=== PATIENT | female | born 1985 | race Caucasian/White ===

== ENCOUNTER 2020-08-25 06:17 | Emergency (ER) | payer OTHER, SELFPAY ==
[2020-08-25 06:24] VITALS: BP 117/69; PULSE 77; RESP 20; TEMP 36.4; O2SAT 100; BMI 21.6
--- NOTE | 2020-08-25 06:44 | ED.NAVMDI ---
HPI - Nausea/Vomiting/Diarrhea General Chief complaint: Nausea/Vomiting/Diarrhea Stated complaint: nausea/vomiting Time Seen by Provider: 08/25/20 06:44 Source: patient Mode of arrival: ambulatory Limitations: no limitations History of Present Illness HPI Narrative: patient with cyclic vomiting syndrome for last 3 months etiology not clear start throwing up without any significant abdominal pain nonstop this time patient been throwing up for last 3 days more so for last 24 hours elicited complaint: nausea and vomiting Pertinent past history: cyclical vomiting Onset (ago): day(s) (3) Description of vomiting: watery Associated nausea: Yes Associated abdominal pain: No Location of pain: none Radiation: diffuse Pain consistency: constant Severity: mild Related Data Allergies Allergy/AdvReac Type Severity Reaction Status Date / Time latex [Latex] Allergy Unknown HIVES Unverified 06/06/20 15:52 acetaminophen [Vicodin] AdvReac Unknown N/V Verified 02/03/19 00:00 hydrocodone [Vicodin] AdvReac Unknown N/V Verified 02/03/19 00:00 metoclopramide [Reglan] AdvReac Unknown hallucinati Verified 02/03/19 00:00 ons sumatriptan [From Imitrex] AdvReac Unknown VOMITING Unverified 06/06/20 15:52 Latex Allergy Unknown hives Uncoded 02/03/19 00:00 latex Allergy Unknown HIVES Uncoded 06/30/18 00:00 From Imitrex AdvReac Unknown VOMITING Uncoded 06/06/20 15:52 From Reglan AdvReac Unknown AGITATION Uncoded 06/06/20 15:52 Review of Systems Review of Systems: REVIEW OF SYSTEMS: Pertinent positives and negatives are stated above in the history. GEN: no fevers, chills, fatigue HEENT: no nasal congestion, sore throat, ear pain NEURO: no headache, dizziness, focal weakness PULM: no cough, shortness of breath CV: no chest pain, palpitations, LE edema ABD: no , diarrhea : no dysuria, urgency, frequency SKIN: no rash ROS otherwise negative x 10 Gastrointestinal: Gastrointestinal: Reports nausea PMFSH Past Medical History Medical History Asthma Surgical History S/P removal of right ovary Social History Social History Advance Directives: No Physical Exam Vital Signs: Vital Signs: Last Vital Signs Temp 98 F 08/25/20 07:33 Pulse 72 08/25/20 07:33 Resp 16 08/25/20 07:33 BP 104/64 08/25/20 07:33 Pulse Ox 100 08/25/20 07:33 Body Mass Index 21.6 Appearance: Alert. Oriented X3. No acute distress. Anxious Eyes: Pupils equal, round and reactive to light. ENT: Pharynx normal. Neck: Normal inspection. Neck supple. CVS: Normal heart rate and rhythm. Pulses normal. Respiratory: No respiratory distress. Breath sounds normal. Abdomen: Soft and nontender. bowel sounds are present no mass palpable Skin: Skin warm and dry. Normal skin color. Normal skin turgor. Extremities: No lower extremity edema. Good range of movement Neuro: Oriented X 3. No motor deficit. No sensory deficit. MDM - Nausea/Vomiting/Diarrhea MDM Narrative Medical decision making narrative: Patient feeling much better now labs are stable taking p.o. fluids. Likely cause of vomiting cyclic vomiting. Will give her Ativan Lab Data Result diagrams: 08/25/20 07:09 08/25/20 07:09 Labs: Lab Results 08/25/20 08/25/20 08/25/20 Range/Units 06:43 07:09 07:09 WBC 10.2 (4.8-10.8) X10*3/uL RBC 4.15 L (4.20-5.50) X10*6/uL Hgb 12.9 (12.0-16.0) g/dl Hct 38.3 (37-47) % MCV 92.3 (80-98) fL MCH 31.1 (27.0-33.0) pg MCHC 33.7 (31.0-35.0) g/dl RDW 12.7 (11.0-16.0) % Plt Count 199 (160-400) X10*3/uL MPV 11.1 (9.4-12.3) fL Immature Gran % (Auto) 0.2 (0.0-0.4) % Neut % (Auto) 82.7 H (45-73) % Lymph % (Auto) 11.4 L (20-40) % [place] % (Auto) 4.3 (2-11) % Eos % (Auto) 1.0 (0-4) % Baso % (Auto) 0.4 (0-2) % Lymph # (Auto) 1.2 (1.2-4.9) X10*3/uL [place] # (Auto) 0.4 (0.1-1.2) X10*3/uL Eos # (Auto) 0.1 (0.0-0.4) X10*3/uL Baso # (Auto) 0.0 (0.0-0.2) X10*3/uL Abs Immat Gran (auto) 0.02 (0.00-0.03) X10*3/uL Absolute Neuts (auto) 8.5 H (2.0-8.3) X10*3/uL Absolute Nucleated RBC 0.000 (0.0-0.012) X10*3/uL Nucleated RBC % (auto) 0.0 (0.0-0.2) /100WBC Sodium 138 (135-145) mmol/L Potassium 4.1 (3.3-5.1) mmol/l Chloride 106 (96-108) mmol/L Carbon Dioxide 22 (22-29) mmol/L Anion Gap 14 (12-20) BUN 16 (9-16) mg/dL Creatinine 0.76 (0.5-1.4) mg/dL Estim Creat Clear Calc 93.8 Estimated GFR > 60 Random Glucose 108 (60-115) mg/dL Calcium 8.7 (8.4-10.2) mg/dL Total Bilirubin 0.7 (0.0-1.0) mg/dL Direct Bilirubin 0.2 (0.0-0.5) mg/dL AST 13 (5-31) U/L ALT 9 (0-31) U/L Alkaline Phosphatase 56 (39-117) U/L Total Protein 7.1 (6.5-8.0) g/dL Albumin 4.2 (3.5-5.0) g/dL Lipase 13 (8-78) U/L Urine Color YELLOW Urine Appearance HAZY Urine pH 5.5 (5.0-8.0) Ur Specific [place] >= 1.030 H (1.005-1.025) Urine Protein NEG (NEG-TRACE) MG/DL Urine Glucose (UA) NEG (NEG) MG/DL Urine Ketones NEG (NEG) MG/DL Urine Blood NEG (NEG) Urine Nitrite NEG (NEG) Ur Leukocyte Esterase NEG (NEG) Urine Test NEGATIVE (NEGATIVE)
[2020-08-25 07:14] LABS: Basophils Percent Auto 0.4 % (0-2); Eosinophils Absolute Auto 0.1 X10*3/uL (0.0-0.4); Hematocrit 38.3 % (37-47); Hemoglobin 12.9 g/dl (12.0-16.0); Imm Gran Abs Auto 0.02 X10*3/uL (0.00-0.03); Imm Gran Pct Auto 0.2 % (0.0-0.4); Lymphocytes Absolute Auto 1.2 X10*3/uL (1.2-4.9); Lymphocytes Percent Auto 11.4 % (20-40); MANUAL DIFF FLAG NO; Mean Corpuscular HGB Conc 33.7 g/dl (31.0-35.0); Mean Corpuscular Hemoglobin 31.1 pg (27.0-33.0); Mean Corpuscular Volume 92.3 fL (80-98); Mean Platelet Volume 11.1 fL (9.4-12.3); Monocytes Absolute Auto 0.4 X10*3/uL (0.1-1.2); Monocytes Percent Auto 4.3 % (2-11); Neutrophils Absolute Auto 8.5 X10*3/uL (2.0-8.3); Neutrophils Percent Auto 82.7 % (45-73); Platelet Count 199 X10*3/uL (160-400); Red Blood Count 4.15 X10*6/uL (4.20-5.50); Red Cell Distribution Width 12.7 % (11.0-16.0); White Blood Count 10.2 X10*3/uL (4.8-10.8)
[2020-08-25] MEDS: diphenhydrAMINE HCL 50 MG/ML VIAL 25 MG IVPUSH (07:14)
[2020-08-25] MEDS: LORazepam 2 MG/ML VIAL 0.5 MG IVPUSH (07:14)
[2020-08-25] MEDS: 0.9 % Sodium Chloride 1,000 ML 999 ML IVCONT (07:14)
[2020-08-25 07:16] LABS: Glucose Urine UA NEG (NEG); Leukocyte Esterase Urine NEG (NEG); Nitrite Urine NEG (NEG); PH 5.5 (5.0-8.0); Specific Gravity - Urine >= 1.030 (1.005-1.025); Urine Blood NEG (NEG); Urine Ketones NEG (NEG); Urine Protein NEG (NEG-TRACE)
[2020-08-25 07:33] VITALS: BP 104/64; PULSE 72; RESP 16; TEMP 36.6; O2SAT 100
[2020-08-25 07:37] LABS: Appearance Urine HAZY; Color Urine YELLOW
[2020-08-25 07:38] LABS: UPreg QC Valid YES; Urine Pregnancy NEGATIVE (NEGATIVE)
[2020-08-25 07:45] LABS: Alanine Aminotransferase 9 U/L (0-31); Albumin Level 4.2 g/dL (3.5-5.0); Alkaline Phosphatase 56 U/L (39-117); Anion Gap 14 (12-20); Aspartate Amino Transferase 13 U/L (5-31); Bilirubin Direct 0.2 mg/dL (0.0-0.5); Bilirubin Total 0.7 mg/dL (0.0-1.0); Blood Urea Nitrogen 16 mg/dL (9-16); Calcium 8.7 mg/dL (8.4-10.2); Carbon Dioxide 22 mmol/L (22-29); Chloride 106 mmol/L (96-108); Creatinine Clr Calc Pharmacy 93.8; Estimated Glomerular Filt Rate > 60; Glucose Random 108 mg/dL (60-115); Lipase 13 U/L (8-78); Potassium 4.1 mmol/l (3.3-5.1); Sodium 138 mmol/L (135-145); Total Protein 7.1 g/dL (6.5-8.0)
== END 2020-08-25 09:24 | disposition home or self-care (01) ==
PROVIDERS: Emergency Provider Internal Medicine
DX: R11.2 Nausea with vomiting, unspecified (principal); Z79.899 Other long term (current) drug therapy
CPT/HCPCS: 36415; 80048; 80076; 81003; 81025; 83690; 85025; 96361; 96374; 96375; 99284; J1200; J2060

== ENCOUNTER 2020-11-25 21:25 | Emergency (ER) | payer OTHER, SELFPAY ==
--- NOTE | 2020-11-25 22:55 | ED.SKABFB ---
HPI - Skin/Abscess/Foreign Bdy General Stated complaint: FOREIGN BODY REMOVAL Time Seen by Provider: 11/25/20 22:39 Source: patient Mode of arrival: ambulatory Limitations: no limitations History of Present Illness HPI narrative: R nose ring in place, the portion you use to take out nose ring is in the skin aspect of her nares - unable to remove at home complaint: foreign body Onset (ago): hour(s) Tetanus up to date: yes Location: face (R nare) Severity: mild Quality: dull Relieving factors: none Exacerbating factors: none Context: none Associated symptoms: denies other symptoms Treatments prior to arrival: none Related Data Previous Rx's Medication Instructions Recorded lorazepam [Ativan] 0.5 mg PO BEDTIME PRN #20 tab 08/25/20 Allergies Allergy/AdvReac Type Severity Reaction Status Date / Time latex [Latex] Allergy Unknown HIVES Unverified 06/06/20 15:52 acetaminophen [Vicodin] AdvReac Unknown N/V Verified 02/03/19 00:00 hydrocodone [Vicodin] AdvReac Unknown N/V Verified 02/03/19 00:00 metoclopramide [Reglan] AdvReac Unknown hallucinati Verified 02/03/19 00:00 ons sumatriptan [From Imitrex] AdvReac Unknown VOMITING Unverified 06/06/20 15:52 Latex Allergy Unknown hives Uncoded 02/03/19 00:00 latex Allergy Unknown HIVES Uncoded 06/30/18 00:00 From Imitrex AdvReac Unknown VOMITING Uncoded 06/06/20 15:52 From Reglan AdvReac Unknown AGITATION Uncoded 06/06/20 15:52 Review of Systems Review of Systems: Constitutional : No Fever, No Chills, Cardiovascular : No Chest Pain, No SOB Respiratory : No Dyspnea Gastrointestinal : No abdominal pain Musculoskeletal : No Joint Swelling Skin : No rash, positive skinFB Neuro : No Weakness, No Numbness PMFSH Past Medical History Attestation statement: The following information was validated with the patient. Medical History Asthma Surgical History S/P removal of right ovary Social History Social History (Updated 03/08/21 @ 22:58 by Makayla Urbina DO) Smoking Status: Never smoker Physical Exam Vital Signs: Appearance: Alert. Oriented X3. No acute distress. Anxious Eyes: Pupils equal, round and reactive to light. ENT: Pharynx normal. R nose ring with clamp part of ring in the skin of her nares no signs of infection Neck: Normal inspection. Neck supple. CVS: Normal heart rate and rhythm. Respiratory: No respiratory distress. . Abdomen: Soft and nontender. Neuro: Oriented X 3. No motor deficit. No sensory deficit. Procedures Procedure Narrative Procedure Narrative: removed R sided nose ring with verbal consent from patient okay to remove and break ring - ring pulled apart with brian clamps and removed - no complications MDM - Skin/Abscess/Foreign Bdy MDM Narrative Medical decision making narrative: 35 yo female with ring in R nares - there is a clamp part that was moved into her skin now she cannot take it out or separate it, occurred at home today Discharge Plan Discharge Clinical Impression: Foreign body (FB) in soft tissue Patient Disposition: Home, Self-Care Instructions: Soft Tissue Foreign Body (ED), Puncture Wound (ED) Additional Instructions: return to ED for any worsening symptoms or concerns apply pressure if it bleeds, monitor for increased redness, yellow drainage, fevers Prescriptions: No Action lorazepam [Ativan] 0.5 mg tablet 0.5 mg PO BEDTIME PRN (Reason: anxiety. nausea vomiting) Qty: 20 RF: 0
[2020-11-25 22:57] VITALS: BP 113/60; PULSE 73; RESP 16; TEMP 37.1; O2SAT 97; BMI 21.6
== END 2020-11-25 23:23 | disposition home or self-care (01) ==
LOC: HO.ED 23:15
PROVIDERS: Emergency Provider Emergency Medicine
DX: M79.5 Residual foreign body in soft tissue (principal)
CPT/HCPCS: 99283; 99284

== ENCOUNTER 2021-11-18 07:27 | Outpatient (REF) | payer OTHER, SELFPAY ==
[2021-11-18 11:51] LABS: Hematocrit 38.3 % (37.0-47.0); Hemoglobin 12.6 g/dl (12.0-16.0); Mean Corpuscular HGB Conc 32.9 g/dl (31.0-35.0); Mean Corpuscular Hemoglobin 30.6 pg (27.0-33.0); Mean Platelet Volume 11.8 fL (9.4-12.3); Platelet Count 299 X10*3/uL (160-400); Red Blood Count 4.12 X10*6/uL (4.20-5.50); Red Cell Distribution Width 12.8 % (11.0-16.0)
[2021-11-18 11:55] LABS: Appearance Urine CLOUDY; Color Urine YELLOW; Glucose Urine UA NEG (NEG); Leukocyte Esterase Urine NEG (NEG); Nitrite Urine NEG (NEG); Specific Gravity - Urine >= 1.030 (1.005-1.025); Urine Blood NEG (NEG); Urine Ketones NEG (NEG); Urine Protein NEG (NEG-TRACE)
[2021-11-18 12:26] LABS: Amorphous Sediment Urine 4+ /LPF; RBC Urine 0 /HPF (0); Squamous Epithelial Cell Urine 2+ /LPF; WBC Urine 0 /HPF (0-4)
[2021-11-18 12:40] LABS: Alanine Aminotransferase 9 U/L (0-31); Alkaline Phosphatase 43 U/L (39-117); Anion Gap 10 (12-20); Aspartate Amino Transferase 13 U/L (5-31); Bilirubin Total 0.7 mg/dL (0.0-1.0); Blood Urea Nitrogen 14 mg/dL (9-16); Calcium 9.4 mg/dL (8.4-10.2); Carbon Dioxide 25 mmol/L (22-29); Chloride 107 mmol/L (96-108); Cholesterol 226 mg/dL; Estimated Glomerular Filt Rate > 60; Glucose Fasting 88 mg/dL (60-99); HDL Cholesterol 63 mg/dL; Iron 153 mcg/dL (30-160); LDL Cholesterol Calculated 145 mg/dl; Percent Iron Saturation 36 % (15-50); Potassium 4.1 mmol/L (3.3-5.1); Sodium 138 mmol/L (135-145); Total Iron Binding Capacity 426 mcg/dL (228-428); Total Protein 7.3 g/dL (6.5-8.0); Triglycerides 90 mg/dL; Unsaturated Iron Binding 273 ug/dL
== END 2021-11-18 07:28 | disposition home or self-care (01) ==
LOC: HO.HMGCLDS 07:27
PROVIDERS: Visit Provider Internal Medicine
DX: Z00.00 Encounter for general adult medical examination without abnormal findings (principal); J45.909 Unspecified asthma, uncomplicated
CPT/HCPCS: 36415; 80053; 80061; 81001; 83540; 85027

== ENCOUNTER 2022-06-04 03:48 | Observation (INO) | payer OTHER, MEDICAID, SELFPAY ==
--- NOTE | ~2022-06-04 | CT_ITS ---
EXAMINATION: CT ABDOMEN AND PELVIS WITH CONTRAST CLINICAL INFORMATION: Left lower quadrant pain with bloody stool COMPARISON: CT abdomen pelvis 03/15/2017 TECHNIQUE: Multidetector volumetric images were obtained from the superior aspect of the liver through the pubic symphysis following administration 85 mL of Omnipaque 350 intravenous contrast. Sagittal and coronal reformatted images were obtained on the technologist's workstation. Oral contrast: No This CT examination was performed using dose optimization techniques as appropriate, variously including the following: *Automated exposure control *Adjustment of mA and/or kV according to patient size (this includes techniques or standardized protocols for targeted exams where dose is matched to indication/reason for exam; i.e. extremities or head) *Use of iterative reconstruction technique DLP: 427 mGy-cm FINDINGS: LUNG BASES: The visualized lung bases are unremarkable. LIVER, GALLBLADDER, AND BILIARY TREE: The liver is enlarged measuring 20 cm in cephalocaudad dimension. Normal in shape and attenuation. No focal hepatic lesion or biliary ductal dilatation is present. The gallbladder is unremarkable with no evidence of radiopaque gallstones, gallbladder wall thickening, or obvious pericholecystic inflammatory changes. PANCREAS: Unremarkable. SPLEEN: Unremarkable. ADRENAL GLANDS: Unremarkable. KIDNEYS AND URETERS: The kidneys are normal in size, shape, and attenuation. No hydronephrosis, hydroureter, or calculi seen. No perinephric stranding. BLADDER: Unremarkable. GASTROINTESTINAL TRACT: The descending colon demonstrates abnormally thickened mucosa with increased enhancement and pericolonic inflammatory changes in the fat (for example see 3:39). Findings are suggestive of colitis, either inflammatory, infectious or ischemic. ABDOMINAL WALL: No significant hernia is appreciated. LYMPH NODES: No retroperitoneal lymphadenopathy. VASCULAR: The proximal right ovarian vein remains thrombosed as has been noted in the past. The aorta and iliofemoral vessels appear unremarkable. The celiac and SMA are widely patent. The AMANDA is patent. No evidence of macrovascular compromise to the mesenteric circulation. The portal venous system is normal. PELVIC VISCERA: Retroverted uterus is present. An abnormal adnexal mass is not seen no free intraperitoneal fluid is present. OSSEOUS STRUCTURES: Unremarkable. Spine and SI joints appear unremarkable. CT/CT abdomen pelvis w IV con IMPRESSION: Colitis involving descending colon with mucosal thickening increased enhancement and pericolonic inflammatory changes. Findings are suggestive of colitis, either inflammatory, infectious or ischemic. The vasculature appears normal. 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 Fleischner guidelines were followed.
[2022-06-04 03:55] VITALS: BP 110/67; PULSE 78; RESP 16; TEMP 36.6; O2SAT 96; BMI 20.9
[2022-06-04 04:21] LABS: Hematocrit 34.3 % (37.0-47.0); Hemoglobin 11.5 g/dl (12.0-16.0); Mean Corpuscular HGB Conc 33.5 g/dl (31.0-35.0); Mean Corpuscular Hemoglobin 30.3 pg (27.0-33.0); Mean Corpuscular Volume 90.3 fL (80.0-98.0); Mean Platelet Volume 11.4 fL (9.4-12.3); Platelet Count 230 X10*3/uL (160-400); Red Cell Distribution Width 12.7 % (11.0-16.0); White Blood Count 14.5 X10*3/uL (4.8-10.8)
[2022-06-04 04:38] LABS: Alanine Aminotransferase 15 U/L (0-31); Albumin Level 3.4 g/dL (3.5-5.0); Alkaline Phosphatase 61 U/L (39-117); Anion Gap 13 (12-20); Aspartate Amino Transferase 13 U/L (5-31); Bilirubin Direct < 0.2 mg/dL (0.0-0.5); Bilirubin Total 0.2 mg/dL (0.0-1.0); Blood Urea Nitrogen 13 mg/dL (9-16); Calcium 8.7 mg/dL (8.4-10.2); Carbon Dioxide 22 mmol/L (22-29); Chloride 109 mmol/L (96-108); Creatinine Clr Calc Pharmacy 101.9; Estimated Glomerular Filt Rate > 60; Glucose Random 116 mg/dL (60-115); Lipase 19 U/L (8-78); Potassium 3.9 mmol/L (3.3-5.1); Sodium 140 mmol/L (135-145); Total Protein 6.3 g/dL (6.5-8.0)
[2022-06-04 05:36] LABS: Appearance Urine Cloudy; Color Urine Yellow; Glucose Urine UA Negative (Negative); Leukocyte Esterase Urine Trace (Negative); Nitrite Urine Negative (Negative); PH 5.5 (5.0-9.0); Specific Gravity - Urine 1.025 (1.005-1.025); UMIC TRIGGER UACC YES; UPreg QC Valid YES; Urine Blood Negative (Negative); Urine Ketones Negative (Negative); Urine Pregnancy NEGATIVE (NEGATIVE); Urine Protein Negative (Neg-Trace)
[2022-06-04 05:41] LABS: Bacteria Urine 3+ (None Seen); Hyaline Casts Urine 0-2 /LPF (0-2); Squamous Epithelial Cell Urine >20 /HPF (0-2); UACC Culture Trigger YES
--- NOTE | 2022-06-04 06:36 | ED.ABDPAIN ---
HPI - Abdominal Pain General Chief Complaint: Abdominal Pain Stated Complaint: abd pain, vomiting Time Seen by Provider: 06/04/22 06:36 Source: patient Mode of arrival: ambulatory Limitations: no limitations History of Present Illness HPI narrative: 37 yo female with hx of asthma, no recent abx use, no anti coagulant use - ate ground beef at home yesterday then around midnight developed severe L sided abdominal pain with watery bloody mucous stool and has a hemorrhoid. This has never happened before. She had a colonoscopy around age 20 that was normal that was done for persistent diarrhea. MD elicited complaint: abdominal pain Pertinent past history: none Onset (ago): hour(s) (7) Pain Consistency: constant Location: LLQ Severity: severe Quality: cramping and stabbing Radiation: none Migration to: no migration Exacerbating factors: movement Relieving factors: nothing Context: possible food poisoning Associated symptoms: nausea, diarrhea, chills and hematochezia Related Data Home Medications Medication Instructions Recorded Confirmed norelgestromin 150 mcg-e.estradiol 1 patch topical QWEEK 06/04/22 06/04/22 35 mcg/24 hr weekly transderm patch (Xulane) Previous Rx's Medication Instructions Recorded fluticasone propionate 230 2 puff inhalation Q12H #36 grams 06/12/21 mcg-salmeterol 21 mcg/actuation HFA inhaler (Advair HFA) albuterol sulfate 2.5 mg/3 mL 2.5 mg (3 mL) inhalation Q6H #90 mL 05/29/22 (0.083 %) solution for nebulization albuterol sulfate 90 mcg/actuation 2 puff inhalation Q6H PRN 06/01/22 aerosol inhaler (ProAir HFA) shortness of breath or wheezing #8.5 grams Allergies Allergy/AdvReac Type Severity Reaction Status Date / Time latex [Latex] Allergy Unknown HIVES Verified 10/20/21 12:28 acetaminophen [Vicodin] AdvReac Unknown vomiting Verified 10/20/21 12:28 hydrocodone [Vicodin] AdvReac Unknown Vomiting Verified 10/20/21 12:28 metoclopramide [Reglan] AdvReac Unknown hallucinati Verified 10/20/21 12:28 ons sumatriptan [From Imitrex] AdvReac Unknown VOMITING Verified 10/20/21 12:28 Review of Systems Review of Systems Constitutional : No Weight loss, No Fever, No Chills ENT/Mouth : No sore throat, No Rhinorrhea Eyes: No Swelling, No Redness Cardiovascular : No Chest Pain, No SOB, NoEdema Respiratory : No Cough, No Sputum, No Wheezing Gastrointestinal : Positive Nausea, no Vomiting, positive Diarrhea, positive abdominal Pain, pos Hematochezia, No Melena Genitourinary : No Dysuria, No Urinary Frequency, No Hematuria, No Urgency Musculoskeletal : No joint pain, No Myalgias, No Joint Swelling Skin : No Skin Lesions, No rash Neuro : No Weakness, No Numbness, No Dizziness, No Headache Psych : No Anxiety/Panic, No Depression Heme/Lymph: No Bruising, No Lymphadenopathy Endocrine : No Polyuria, No Polydipsia All other systems reviewed and are negative. [facility] Past Medical History Medical History Asthma Kidney stones Normal Pap smear Seasonal allergic rhinitis Surgical History S/P removal of right ovary Family History Family History Father Hypertension Brother Substance use disorder Mother No problems noted. Social History Social History Household Members Other:: single, 2 children, works for [employer] Housing: House Patient Tobacco Use Status: Never used Tobacco e-Cigarette/Vaping Use: Currently Using Use of substances other than those prescribed or required for medical reasons: No Advance Directives: No Advance Directives Information Provided: Yes service: No Current occupational status: employed Physical Exam ED Vital Signs: Vital Signs - 24 hr 06/04/22 03:55 Temperature 97.9 F Pulse Rate 78 Respiratory Rate 16 Blood Pressure 110/67 Pulse Oximetry 96 Oxygen Delivery Method Room Air BMI result Body Mass Index 20.9 Appearance: Alert. Oriented X3. No acute distress. Eyes: Pupils equal, round and reactive to light. ENT: Pharynx normal. Neck: Normal inspection. Neck supple. CVS: Normal heart rate and rhythm. Pulses normal. Respiratory: No respiratory distress. Breath sounds normal. Abdomen: Soft and moderate LLQ pain no rebound Rectal: large non thrombosed non bleeding ext hemorrhoid, digit is slight pink on exam stool Skin: Skin warm and dry. Normal skin color. Normal skin turgor. Extremities: No lower extremity edema. No calf ttp Neuro: Oriented X 3. No motor deficit. No sensory deficit. Course Course Course Narrative: repeat pain medications given ground beef ingestion I am holding off on abx for possible E Coli and concern for HUS she is healthy this should be self limiting - may need admission for pain control lactic acid is ordered MDM - Abdominal Pain MDM Narrative Medical decision making narrative: 37 yo female with hx of asthma, no abx use, no blood thinners here with c/o LLQ pain, nausea, bloody diarrhea did eat ground beef yesterday at home. At this time will need labs, IVF, IV morphine for pain, CT scan for colitis - dispo per results and findings. Lab Data Result diagrams: 06/04/22 04:13 06/04/22 04:13 Labs: Lab Results 06/04/22 06/04/22 06/04/22 Range/Units 04:13 04:13 07:10 WBC 14.5 H (4.8-10.8) X10*3/uL RBC 3.80 L (4.20-5.50) X10*6/uL Hgb 11.5 L (12.0-16.0) g/dl Hct 34.3 L (37.0-47.0) % MCV 90.3 (80.0-98.0) fL MCH 30.3 (27.0-33.0) pg MCHC 33.5 (31.0-35.0) g/dl RDW 12.7 (11.0-16.0) % Plt Count 230 (160-400) X10*3/uL MPV 11.4 (9.4-12.3) fL Absolute Nucleated RBC 0.000 (0.0-0.012) X10*3/uL Nucleated RBC % (auto) 0.0 (0.0-0.2) /100WBC Sodium 140 (135-145) mmol/L Potassium 3.9 (3.3-5.1) mmol/L Chloride 109 H (96-108) mmol/L Carbon Dioxide 22 (22-29) mmol/L Anion Gap 13 (12-20) BUN 13 (9-16) mg/dL Creatinine 0.71 (0.5-1.4) mg/dL Estim Creat Clear Calc 101.9 Estimated GFR > 60 Random Glucose 116 H (60-115) mg/dL Lactic Acid (0.5-2.0) mmol/L Calcium 8.7 D (8.4-10.2) mg/dL Total Bilirubin 0.2 (0.0-1.0) mg/dL Direct Bilirubin < 0.2 (0.0-0.5) mg/dL AST 13 (5-31) U/L ALT 15 (0-31) U/L Alkaline Phosphatase 61 D (39-117) U/L C-Reactive Protein 0.44 (< or = 0.50) mg/dL Total Protein 6.3 L (6.5-8.0) g/dL Albumin 3.4 L (3.5-5.0) g/dL Lipase 19 (8-78) U/L Stool Occult Blood POSITIVE (NEGATIVE) COVID-19 (TAMIKO) (Negative) COVID-19 Clin Com 06/04/22 06/04/22 Range/Units 07:11 09:24 WBC (4.8-10.8) X10*3/uL RBC (4.20-5.50) X10*6/uL Hgb (12.0-16.0) g/dl Hct (37.0-47.0) % MCV (80.0-98.0) fL MCH (27.0-33.0) pg MCHC (31.0-35.0) g/dl RDW (11.0-16.0) % Plt Count (160-400) X10*3/uL MPV (9.4-12.3) fL Absolute Nucleated RBC (0.0-0.012) X10*3/uL Nucleated RBC % (auto) (0.0-0.2) /100WBC Sodium (135-145) mmol/L Potassium (3.3-5.1) mmol/L Chloride (96-108) mmol/L Carbon Dioxide (22-29) mmol/L Anion Gap (12-20) BUN (9-16) mg/dL Creatinine (0.5-1.4) mg/dL Estim Creat Clear Calc Estimated GFR Random Glucose (60-115) mg/dL Lactic Acid 1.0 (0.5-2.0) mmol/L Calcium (8.4-10.2) mg/dL Total Bilirubin (0.0-1.0) mg/dL Direct Bilirubin (0.0-0.5) mg/dL AST (5-31) U/L ALT (0-31) U/L Alkaline Phosphatase (39-117) U/L C-Reactive Protein (< or = 0.50) mg/dL Total Protein (6.5-8.0) g/dL Albumin (3.5-5.0) g/dL Lipase (8-78) U/L Stool Occult Blood (NEGATIVE) COVID-19 (TAMIKO) Negative (Negative) COVID-19 Clin Com See Note Discharge Plan Discharge Clinical Impression: Colitis, Abdominal pain, Bright red rectal bleeding Patient Disposition: Admitted As Inpatient
[2022-06-04] MEDS: ondansetron HCL 4 MG/2 ML VIAL IVPUSH ×3 (07:11→18:35)
[2022-06-04] MEDS: Lactated Ringers 1,000 ML 999 ML IV (07:12)
[2022-06-04] MEDS: Morphine Sulfate 4 MG/ML CARTRIDGE IVPUSH (07:12)
[2022-06-04 07:29] LABS: OBS Int Ctl Valid YES; OBS1 POSITIVE (NEGATIVE)
[2022-06-04 07:40] LABS: COVID-19 Test Negative (Negative); IDNOW Serial# 16C4AD1C
[2022-06-04] MEDS: iohexoL 350 MG/ML 100 ML INFUS..BTL 85 ML IV (07:55)
[2022-06-04] MEDS: HYDROmorphone HCl 0.5 MG/0.5 ML SYRINGE IVPUSH ×2 (09:07→13:17)
[2022-06-04] MEDS: Lactated Ringers 1,000 ML 100 ML IVCONT ×2 (10:13→19:28)
--- NOTE | 2022-06-04 10:15 | P.HPHOSP_ITS ---
History of Present Illness Date of Service: 06/04/22 Chief Complaint: brbpr, llq pain 37F with pmh moderate persistent asthma presented with one day history of BRBPR. patient states that about 1 week ptp she went out for dinner and had 2-3 days severe watery diarrhea, her son, who also had the dinner had similar symptoms. she then felt better for about 2-3 days, until night of presentation when she woke up with severe llq 10/10 crampy non radiating abdominal pain associated with bloody diarrhea. patient denies fevers, previous hisotyr of similar symptoms, no family history of IBD. 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 Review of Systems Review of Systems: Constitutional: Denies fever, denies Chills Eyes: denies blurry vision ENT: denies sore throat CVS: denies chest pain Respiratory: Denies dyspnea GI: abdominal pain : denies dysuria MSK: denies neck pain Skin: denies rash Neuro: denies specific motor weakness Psych: denies suicidal ideation Endocrine: denies heat/cold intolerance Hematologic: denies easy bleeding Allergy: denies hives [facility] Medical History Asthma Kidney stones Normal Pap smear Seasonal allergic rhinitis Family History Father Hypertension Brother Substance use disorder Mother No problems noted. Surgical History S/P removal of right ovary Social History Household Members Other:: single, 2 children, works for [employer] Housing: House Patient Tobacco Use Status: Never used Tobacco e-Cigarette/Vaping Use: Currently Using Advance Directives: No Advance Directives Information Provided: Yes Current occupational status: employed Meds Allergies Allergy/AdvReac Type Severity Reaction Status Date / Time latex [Latex] Allergy Unknown HIVES Verified 10/20/21 12:28 acetaminophen [Vicodin] AdvReac Unknown vomiting Verified 10/20/21 12:28 hydrocodone [Vicodin] AdvReac Unknown Vomiting Verified 10/20/21 12:28 metoclopramide [Reglan] AdvReac Unknown hallucinati Verified 10/20/21 12:28 ons sumatriptan [From Imitrex] AdvReac Unknown VOMITING Verified 10/20/21 12:28 Active Medications: Current Medications Albuterol Sulfate (Albuterol Sulfate 90 Mcg 8 Gm Inhaler) 1 puff INHALE RQ4H PRN PRN Reason: sob Fluticasone/Vilanterol (Fluticasone/Vilanterol 200/25 Blst.W.Dev) 1 puff INHALE RDAILY LEROY Hydromorphone HCl (Hydromorphone Hcl 0.5 Mg/0.5 Ml Syringe) 0.5 mg IVPUSH Q4H PRN; Protocol PRN Reason: moderate pain Lactated Ringer's (Lr) 1,000 mls @ 100 mls/hr IVCONT .Q10H LEROY Last Admin: 06/04/22 10:13 Dose: 100 mls/hr Pharmacy Consult (Consult Rx Perform Med Rec) 1 each MISCELLANE ONCE PRN PRN Reason: Consult order Home Medications Medication Instructions Recorded Confirmed Last Taken Type etonogestrel 0.12 mg-ethinyl vag ring vaginal DIRECTED 06/12/21 10/20/21 Unknown History estradiol 0.015 mg/24 hr vaginal ring Physical Exam Vital Signs and Narrative: Vital Signs: Last Vital Signs Temp 97.9 F 06/04/22 03:55 Pulse 78 06/04/22 03:55 Resp 16 06/04/22 03:55 BP 110/67 06/04/22 03:55 Pulse Ox 96 06/04/22 03:55 O2 Del Method 06/04/22 03:55 BMI result Body Mass Index 20.9 General: no acute distress HEENT: atraumatic Neck: normal to visual inspection CVS: S1, S2, RRR Resp: CTA bilateral Chest: non tender GI: soft, LLQ tender, non distended : no CVA tenderness Skin: no rashes Extremities: no edema Neuro: Oriented X3, grossly intact Psych: cooperative Results Labs CBC and Chem 7: 06/04/22 04:13 06/04/22 04:13 Labs: Laboratory Results - last 24 hr 06/04/22 06/04/22 06/04/22 04:13 04:13 07:10 MCV 90.3 MCH 30.3 MCHC 33.5 RDW 12.7 Plt Count 230 MPV 11.4 Absolute Nucleated RBC 0.000 Nucleated RBC % (auto) 0.0 Anion Gap 13 Estim Creat Clear Calc 101.9 Estimated GFR > 60 Random Glucose 116 H Lactic Acid Calcium 8.7 D Total Bilirubin 0.2 Direct Bilirubin < 0.2 AST 13 ALT 15 Alkaline Phosphatase 61 D Total Protein 6.3 L Albumin 3.4 L Lipase 19 Urine Color Urine Appearance Urine pH Ur Specific [place] Urine Protein Urine Glucose (UA) Urine Ketones Urine Blood Urine Nitrite Ur Leukocyte Esterase Urine RBC Urine WBC Ur Squamous Epith Cells Urine Bacteria Hyaline Casts Urine Test Stool Occult Blood POSITIVE COVID-19 (TAMIKO) COVID-19 Clin Com 06/04/22 06/04/22 06/04/22 07:11 09:24 Unknown MCV MCH MCHC RDW Plt Count MPV Absolute Nucleated RBC Nucleated RBC % (auto) Anion Gap Estim Creat Clear Calc Estimated GFR Random Glucose Lactic Acid 1.0 Calcium Total Bilirubin Direct Bilirubin AST ALT Alkaline Phosphatase Total Protein Albumin Lipase Urine Color Yellow Urine Appearance Cloudy Urine pH 5.5 Ur Specific [place] 1.025 Urine Protein Negative Urine Glucose (UA) Negative Urine Ketones Negative Urine Blood Negative Urine Nitrite Negative Ur Leukocyte Esterase Trace H Urine RBC 3-5 H Urine WBC 6-10 H Ur Squamous Epith Cells >20 Urine Bacteria 3+ Hyaline Casts 0-2 Urine Test Stool Occult Blood COVID-19 (TAMIKO) Negative COVID-19 Clin Com See Note 06/04/22 Unknown MCV MCH MCHC RDW Plt Count MPV Absolute Nucleated RBC Nucleated RBC % (auto) Anion Gap Estim Creat Clear Calc Estimated GFR Random Glucose Lactic Acid Calcium Total Bilirubin Direct Bilirubin AST ALT Alkaline Phosphatase Total Protein Albumin Lipase Urine Color Urine Appearance Urine pH Ur Specific [place] Urine Protein Urine Glucose (UA) Urine Ketones Urine Blood Urine Nitrite Ur Leukocyte Esterase Urine RBC Urine WBC Ur Squamous Epith Cells Urine Bacteria Hyaline Casts Urine Test NEGATIVE Stool Occult Blood COVID-19 (TAMIKO) COVID-19 Clin Com Imaging Radiologist's Impressions: Impressions Abdomen/Pelvis CT 06/04/22 07:59 IMPRESSION: Colitis involving descending colon with mucosal thickening increased enhancement and pericolonic inflammatory changes. Findings are suggestive of colitis, either inflammatory, infectious or ischemic. The vasculature appears normal. 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 Fleischner guidelines were followed. 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
[2022-06-04 11:01] VITALS: BP 111/68; PULSE 66; RESP 15; O2SAT 98
[2022-06-04 11:34] VITALS: BP 102/69; PULSE 59; RESP 18; O2SAT 99
--- NOTE | 2022-06-04 12:09 | P.CNGI_ITS ---
History of Present Illness Data of Consult Service Date: 06/04/22 Requesting physician: Freddie Green Primary Care Provider: Katelyn Stoll MD HPI Reason for consult: Hematochezia an abnormal CT scan This is a 37-year-old female with past medical history of moderate asthma, who presented to the hospital for sudden onset of left lower quadrant pain with hematochezia and was found to have abnormal findings on CT abdomen. History was obtained from the patient who states that around 5 days ago she and her son had take out food and both got sick with abdominal pain and diarrhea. That resolved in a couple of days. Then last night she had ground beef for supper. Woke up in the middle of the night with severe LLQ sharp pain associated with nausea, cold sweats and several bouts of hematochezia. She has had chills but no fevers. Describes the BM as dark red/maroon clots with minimal fecal matter. Had around 10 episodes since last night. Currently continues to get waves of LLQ pain and cramping isaiah with the BM. She denies taking any NSAIDs, blood thinners or OTC/CAM. Denies any drug use including cocaine. No fam hx of CRC or IBD. In the ER initial work up showed elevated white count. Imaging concerning for L sided colitis. Incidental note of hepatomegaly was made as well. Review of Systems Review of Systems: Yes all other systems are reviewed and are negative PMFSH Past Medical History Medical History Asthma Kidney stones Normal Pap smear Seasonal allergic rhinitis Family History Family History Father Hypertension Brother Substance use disorder Mother No problems noted. Surgical History Surgical History S/P removal of right ovary Social History Social History Household Members Other:: single, 2 children, works for [employer] Housing: House Patient Tobacco Use Status: Never used Tobacco e-Cigarette/Vaping Use: Currently Using Use of substances other than those prescribed or required for medical reasons: No Advance Directives: No Advance Directives Information Provided: Yes Current occupational status: employed Meds Allergies Allergy/AdvReac Type Severity Reaction Status Date / Time latex [Latex] Allergy Unknown HIVES Verified 10/20/21 12:28 acetaminophen [Vicodin] AdvReac Unknown vomiting Verified 10/20/21 12:28 hydrocodone [Vicodin] AdvReac Unknown Vomiting Verified 10/20/21 12:28 metoclopramide [Reglan] AdvReac Unknown hallucinati Verified 10/20/21 12:28 ons sumatriptan [From Imitrex] AdvReac Unknown VOMITING Verified 10/20/21 12:28 Active Medications: Current Medications Albuterol Sulfate (Albuterol Sulfate 90 Mcg 8 Gm Inhaler) 1 puff INHALE RQ4H PRN PRN Reason: sob Fluticasone/Vilanterol (Fluticasone/Vilanterol 200/25 Blst.W.Dev) 1 puff INHALE RDAILY [facility] Hydromorphone HCl (Hydromorphone Hcl 0.5 Mg/0.5 Ml Syringe) 0.5 mg IVPUSH Q4H PRN; Protocol PRN Reason: moderate pain Lactated Ringer's (Lr) 1,000 mls @ 100 mls/hr IVCONT .Q10H [facility] Last Admin: 06/04/22 10:13 Dose: 100 mls/hr Ondansetron HCl (Ondansetron Hcl 4 Mg/2 Ml Vial) 4 mg IVPUSH Q6H PRN PRN Reason: nausea Last Admin: 06/04/22 11:50 Dose: 4 mg Pharmacy Consult (Consult Rx Perform Med Rec) 1 each MISCELLANE ONCE PRN PRN Reason: Consult order Sodium Chloride (0.9 % Sodium Chloride Flush 3 Ml Syringe) 3 ml IVFLUSH QSHIFT [facility] Home Medications Medication Instructions Recorded Confirmed Last Taken Type etonogestrel 0.12 mg-ethinyl vag ring vaginal DIRECTED 06/12/21 10/20/21 Unknown History estradiol 0.015 mg/24 hr vaginal ring Physical Exam Vital Signs: Vital Signs: Last Vital Signs Temp 97.9 F 06/04/22 03:55 Pulse 59 06/04/22 11:34 Resp 18 06/04/22 11:34 BP 102/69 06/04/22 11:34 Pulse Ox 99 06/04/22 11:34 O2 Del Method 06/04/22 11:34 BMI result Body Mass Index 20.9 Gen appear: NAD HEENT: nonicteric, no cervical lymphadenopathy Chest: CTA CVS: Regular S1/S2 Abd: soft, mildly tender in LLQ, nondistended, bowel sounds + Rectal: Prolapsed non thrombosed hemorrhoid. No blood or stool on digital exam Ext: no peripheral edema Neuro: A/Ox3, noted to move all extremities spontaneously Psych: interacting appropriately Results Labs CBC & Chem 7: 06/04/22 04:13 06/04/22 04:13 Labs: Short CBC 06/04/22 Range/Units 04:13 WBC 14.5 H (4.8-10.8) X10*3/uL Hgb 11.5 L (12.0-16.0) g/dl Hct 34.3 L (37.0-47.0) % Plt Count 230 (160-400) X10*3/uL BMP 06/04/22 04:13 Sodium 140 Potassium 3.9 Chloride 109 H Carbon Dioxide 22 BUN 13 Creatinine 0.71 Calcium 8.7 D Liver Function 06/04/22 Range/Units 04:13 Total Bilirubin 0.2 (0.0-1.0) mg/dL Direct Bilirubin < 0.2 (0.0-0.5) mg/dL AST 13 (5-31) U/L ALT 15 (0-31) U/L Alkaline Phosphatase 61 D (39-117) U/L Albumin 3.4 L (3.5-5.0) g/dL Urine 06/04/22 Range/Units Unknown Urine Color Yellow Urine Appearance Cloudy Urine pH 5.5 (5.0-9.0) Ur Specific [place] 1.025 (1.005-1.025) Urine Protein Negative (Neg-Trace) mg/dL Urine Glucose (UA) Negative (Negative) mg/dL Imaging CT scan - abdomen: Attestation: I personally reviewed and interpreted this imaging study as follows: My impression: L sided colitis. Hepatomegaly. Patent mesenteric and portal vasculature. Assessment and Plan (1) Bloody diarrhea: Status: Acute (2) Abdominal pain: Qualifiers: Abdominal location: generalized Qualified Code(s): R10.84 - Generalized abdominal pain Status: Acute (3) Colitis: Status: Acute Plan Given the sudden onset of abdominal pain with bloody diarrhea, without any prodromal symptoms, infectious etiology most likely especially organisms such as STEC given ingestion of ground beef earlier that evening (though would typically expect pancolitis). Other differentials include inflammatory (less likely given acute onset of sx) or ischemic (also low on DDx due to her age and absence of risk factors). Nonbloody diarrhea with outlet bleeding from prolapsed hemorrhoid considered however would not expect passage of maroon blood/clots. Recommendations: - IVF resuscitation - Agree with holding Abx - Send stool for leukocytes and PCR (confirmed with micro, PCR includes STEC) - Check CRP and lactate - Serial abd exam - Flexible sigmoidoscopy tentatively scheduled for tomorrow. Please keep her NPO after midnights. Okay for CLD today. - Please administer x2 tap water enema tomorrow morning. Recommendations were reviewed with the hospitalist team. Procedures Date of Service Date of Service: 06/04/22
[2022-06-04 13:16] VITALS: BP 103/64; PULSE 65; RESP 18; O2SAT 96
[2022-06-04 13:24] LABS: C Reactive Protein 0.44 mg/dL (< or = 0.50)
--- NOTE | 2022-06-04 14:26 | MHC.CM.PN ---
PT REPORTS SHE LIVES AT HOME WITH HER CHILDREN PT IS INDEPENDENT WITH CARE, WORKS AND DRIVES PT DENIES HAVING HOME SERVICES SHE REPORTS HAVING A NEBULIZER ONLY FOR DME PT REPORTS SHE IS COVID VACCINATED NO HCP-DECLINES TO COMPLETE AT THIS TIME, SEVERE PAIN PCP: CHELE OLEA OBSERVATION NOTICE DELIVERED, COPY SENT TO [facility] CURRENT DC PLAN IS HOME WITH NO SERVICES PT WILL ARRANGE TRANSPORTATION HOME
[2022-06-04] MEDS: Morphine Sulfate 2 MG/ML CARTRIDGE IVPUSH (15:44)
[2022-06-04 23:22] VITALS: BP 112/67; PULSE 69; RESP 17; O2SAT 94
[2022-06-05] MEDS: Mineral OiL enema 133 ML ENEMA 266 ML PR (06:05)
[2022-06-05] MEDS: Lactated Ringers 1,000 ML 100 ML IVCONT (06:12)
[2022-06-05 07:06] LABS: Hematocrit 33.2 % (37.0-47.0); Hemoglobin 10.7 g/dl (12.0-16.0); Mean Corpuscular HGB Conc 32.2 g/dl (31.0-35.0); Mean Corpuscular Hemoglobin 29.7 pg (27.0-33.0); Mean Corpuscular Volume 92.2 fL (80.0-98.0); Mean Platelet Volume 12.4 fL (9.4-12.3); Platelet Count 220 X10*3/uL (160-400); Red Cell Distribution Width 12.5 % (11.0-16.0); White Blood Count 8.2 X10*3/uL (4.8-10.8)
[2022-06-05 07:36] LABS: Anion Gap 14 (12-20); Blood Urea Nitrogen 7 mg/dL (9-16); Calcium 8.2 mg/dL (8.4-10.2); Carbon Dioxide 23 mmol/L (22-29); Chloride 104 mmol/L (96-108); Creatinine Clr Calc Pharmacy 101.9; Estimated Glomerular Filt Rate > 60; Glucose Fasting 77 mg/dL (60-99); Magnesium 1.8 mg/dL (1.6-2.6); Potassium 4.1 mmol/L (3.3-5.1); Sodium 137 mmol/L (135-145)
[2022-06-05 08:32] VITALS: BP 111/71; PULSE 61; RESP 16; O2SAT 100
[2022-06-05] MEDS: Butalb/Acetamin/Caff 50/325/40 TABLET 1 TAB PO (09:17)
[2022-06-05 11:13] VITALS: BP 109/57; PULSE 71; RESP 18; TEMP 36.6; O2SAT 98
--- NOTE | 2022-06-05 11:23 | HO.PM.IMPN ---
Subjective Subjective Date of Service: 06/05/22 Interval History: cc: abd pain interval history:migraine, ongoing pain, no more diarrhea Cardiovascular Cardiovascular: Reports no additional cardiovascular complaints Respiratory Respiratory: Reports no additional respiratory complaints Physical Exam Vital Signs: Vital Signs: Last Vital Signs Temp 97.9 F 06/05/22 11:13 Pulse 71 06/05/22 11:13 Resp 18 06/05/22 11:13 BP 109/57 L 06/05/22 11:13 Pulse Ox 98 06/05/22 11:13 O2 Del Method 06/05/22 11:13 BMI result Body Mass Index 20.9 General: AO X 3, in distress Resp: CTA bilateral, no accessory muscles used CVS: S1,S2,RRR GI: soft, tender, non distended Neuro: motor grossly intact, alert Psych: appropriate affect, appropriate insight Objective Data Active Medications Acetaminophen/Butalbital/Caffeine (Butalb/Acetamin/Caff 50/325/40 Tablet) 1 tab PO Q4H PRN PRN Reason: headache Last Admin: 06/05/22 09:17 Dose: 1 tab Documented By: JUS Albuterol Sulfate (Albuterol Sulfate 90 Mcg 8 Gm Inhaler) 1 puff INHALE RQ4H PRN PRN Reason: sob Fluticasone/Vilanterol (Fluticasone/Vilanterol 200/25 Blst.W.Dev) 1 puff INHALE RDAILY [facility] Last Admin: 06/05/22 09:00 Dose: Not Given Documented By: DONNA Non-Admin Reason: new med not avial. pharm called Hydromorphone HCl (Hydromorphone Hcl 0.5 Mg/0.5 Ml Syringe) 0.5 mg IVPUSH Q4H PRN; Protocol PRN Reason: moderate pain Last Admin: 06/04/22 13:17 Dose: 0.5 mg Documented By: PIPO Lactated Ringer's (Lr) 1,000 mls @ 100 mls/hr IVCONT .Q10H [facility] Last Admin: 06/05/22 06:12 Dose: 100 mls/hr Documented By: ROM Morphine Sulfate (Morphine Sulfate 2 Mg/Ml Cartridge) 2 mg IVPUSH Q3H PRN; Protocol PRN Reason: moderate pain Last Admin: 06/04/22 15:44 Dose: 2 mg Documented By: PIPO Ondansetron HCl (Ondansetron Hcl 4 Mg/2 Ml Vial) 4 mg IVPUSH Q6H PRN PRN Reason: nausea Last Admin: 06/04/22 18:35 Dose: 4 mg Documented By: PIPO Pharmacy Consult (Consult Rx Perform Med Rec) 1 each MISCELLANE ONCE PRN PRN Reason: Consult order Sodium Chloride (0.9 % Sodium Chloride Flush 3 Ml Syringe) 3 ml IVFLUSH QSHIFT [facility] Last Admin: 06/05/22 08:25 Dose: Not Given Documented By: JUS Non-Admin Reason: IV Running Labs CBC & Chem 7: 06/05/22 05:57 06/05/22 05:57 Labs: Laboratory Results - last 24 hr 06/04/22 06/05/22 06/05/22 04:13 05:57 05:57 MCV 92.2 MCH 29.7 MCHC 32.2 RDW 12.5 Plt Count 220 MPV 12.4 H Absolute Nucleated RBC 0.000 Nucleated RBC % (auto) 0.0 Anion Gap 14 Estim Creat Clear Calc 101.9 Estimated GFR > 60 Fasting Glucose 77 Calcium 8.2 L Magnesium 1.8 C-Reactive Protein 0.44 Assessment and Plan (1) Bloody diarrhea: Status: Acute Plan 37F pmh moderate persistent asthma presented with colitis acute left sided colitis with hematochezia suspect infectious etiology patient afebrile, no sepsis, holding off on abx until organism determined no further blood or diarrhea, stool pcr to be sent once patient has stool GI appreciated, plan for flex sig today pain control, ivf fluids moderate persistent asthma conitnue laba/ics, prn laura migriane fiorecet incidental hepatomegaly follow up outpatient, denies ETOH, IVDA 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
--- NOTE | 2022-06-05 12:16 | PC.NURSE ---
Pt A&ox4, LCA, abd soft, TTP in bilateral lower quadrants. NPO since arrival, headache 03/29 at this time, medicated as per MAR orders for pain. SSS given report to pt's sigmoid, per SSS pt to be picked up at 1245. Pt ind to BR. Call hickman within reach. Will continue to monitor.
[2022-06-05 13:37] VITALS: BP 118/72; PULSE 69; RESP 18; TEMP 37.5; O2SAT 96
--- NOTE | 2022-06-05 13:48 | HO.ANESPROP2 ---
[facility] Active Problems Active Problems: All Active Problems (Updated 06/04/22 @ 13:29 by Mallorie Clemens MD) Bloody diarrhea (Acute) Colitis (Acute) Abdominal pain (Acute) Bright red rectal bleeding (Acute) Seasonal allergic rhinitis (Acute) Asthma (Acute) Past Medical History Medical History Asthma Kidney stones Normal Pap smear Seasonal allergic rhinitis Family History Family History Father Hypertension Brother Substance use disorder Mother No problems noted. Family history of problems with anesthesia: No Surgical History Surgical History S/P removal of right ovary History of Problems with Anesthesia: No Social History Social History Household Members Other:: single, 2 children, works for [employer] Housing: House Patient Tobacco Use Status: Never used Tobacco e-Cigarette/Vaping Use: Currently Using service: No Current occupational status: employed Meds Allergies Allergy/AdvReac Type Severity Reaction Status Date / Time latex [Latex] Allergy Unknown HIVES Verified 10/20/21 12:28 hydrocodone [Vicodin] AdvReac Unknown Vomiting Verified 10/20/21 12:28 metoclopramide [Reglan] AdvReac Unknown hallucinati Verified 10/20/21 12:28 ons sumatriptan [From Imitrex] AdvReac Unknown VOMITING Verified 10/20/21 12:28 Active Medications: Current Medications Acetaminophen/Butalbital/Caffeine (Butalb/Acetamin/Caff 50/325/40 Tablet) 1 tab PO Q4H PRN PRN Reason: headache Last Admin: 06/05/22 09:17 Dose: 1 tab Albuterol Sulfate (Albuterol Sulfate 90 Mcg 8 Gm Inhaler) 1 puff INHALE RQ4H PRN PRN Reason: sob Fluticasone/Vilanterol (Fluticasone/Vilanterol 200/25 Blst.W.Dev) 1 puff INHALE RDAILY [facility] Last Admin: 06/05/22 09:00 Dose: Not Given Hydromorphone HCl (Hydromorphone Hcl 0.5 Mg/0.5 Ml Syringe) 0.5 mg IVPUSH Q4H PRN; Protocol PRN Reason: moderate pain Last Admin: 06/04/22 13:17 Dose: 0.5 mg Lactated Ringer's (Lr) 1,000 mls @ 100 mls/hr IVCONT .Q10H [facility] Last Admin: 06/05/22 06:12 Dose: 100 mls/hr Morphine Sulfate (Morphine Sulfate 2 Mg/Ml Cartridge) 2 mg IVPUSH Q3H PRN; Protocol PRN Reason: moderate pain Last Admin: 06/04/22 15:44 Dose: 2 mg Ondansetron HCl (Ondansetron Hcl 4 Mg/2 Ml Vial) 4 mg IVPUSH Q6H PRN PRN Reason: nausea Last Admin: 06/04/22 18:35 Dose: 4 mg Pharmacy Consult (Consult Rx Perform Med Rec) 1 each MISCELLANE ONCE PRN PRN Reason: Consult order Sodium Chloride (0.9 % Sodium Chloride Flush 3 Ml Syringe) 3 ml IVFLUSH QSHIFT [facility] Last Admin: 06/05/22 08:25 Dose: Not Given Home Medications Medication Instructions Recorded Confirmed Last Taken Type norelgestromin 150 mcg-e.estradiol 1 patch topical QWEEK 06/04/22 06/04/22 Unknown History 35 mcg/24 hr weekly transderm patch (Xulane) Exam Exam Date and Time: June 05, 2022 1348 Height,Weight and Vital Signs: Height 5 ft 6 in Weight 13.608 kg Last Vital Signs Temp 99.5 F 06/05/22 13:37 Pulse 69 06/05/22 13:37 Resp 18 06/05/22 13:37 BP 118/72 06/05/22 13:37 Pulse Ox 96 06/05/22 13:37 O2 Del Method 06/05/22 13:37 Pertinent Lab Results Pertinent Lab Results: Laboratory Tests 06/04/22 06/04/22 06/04/22 04:13 04:13 07:10 WBC 14.5 H RBC 3.80 L Hgb 11.5 L Hct 34.3 L MCV 90.3 MCH 30.3 MCHC 33.5 RDW 12.7 Plt Count 230 MPV 11.4 Absolute Nucleated RBC 0.000 Nucleated RBC % (auto) 0.0 Sodium 140 Potassium 3.9 Chloride 109 H Carbon Dioxide 22 Anion Gap 13 BUN 13 Creatinine 0.71 Estim Creat Clear Calc 101.9 Estimated GFR > 60 Random Glucose 116 H Fasting Glucose Lactic Acid Calcium 8.7 D Magnesium Total Bilirubin 0.2 Direct Bilirubin < 0.2 AST 13 ALT 15 Alkaline Phosphatase 61 D C-Reactive Protein 0.44 Total Protein 6.3 L Albumin 3.4 L Lipase 19 Urine Color Urine Appearance Urine pH Ur Specific [place] Urine Protein Urine Glucose (UA) Urine Ketones Urine Blood Urine Nitrite Ur Leukocyte Esterase Urine RBC Urine WBC Ur Squamous Epith Cells Urine Bacteria Hyaline Casts Urine Test Stool Occult Blood POSITIVE COVID-19 ([facility]IKO) COVID-19 Clin Com 06/04/22 06/04/22 06/04/22 07:11 09:24 Unknown WBC RBC Hgb Hct MCV MCH MCHC RDW Plt Count MPV Absolute Nucleated RBC Nucleated RBC % (auto) Sodium Potassium Chloride Carbon Dioxide Anion Gap BUN Creatinine Estim Creat Clear Calc Estimated GFR Random Glucose Fasting Glucose Lactic Acid 1.0 Calcium Magnesium Total Bilirubin Direct Bilirubin AST ALT Alkaline Phosphatase C-Reactive Protein Total Protein Albumin Lipase Urine Color Yellow Urine Appearance Cloudy Urine pH 5.5 Ur Specific [place] 1.025 Urine Protein Negative Urine Glucose (UA) Negative Urine Ketones Negative Urine Blood Negative Urine Nitrite Negative Ur Leukocyte Esterase Trace H Urine RBC 3-5 H Urine WBC 6-10 H Ur Squamous Epith Cells >20 Urine Bacteria 3+ Hyaline Casts 0-2 Urine Test Stool Occult Blood COVID-19 (TAMIKO) Negative COVID-19 Clin Com See Note 06/04/22 06/05/22 06/05/22 Unknown 05:57 05:57 WBC 8.2 RBC 3.60 L Hgb 10.7 L Hct 33.2 L MCV 92.2 MCH 29.7 MCHC 32.2 RDW 12.5 Plt Count 220 MPV 12.4 H Absolute Nucleated RBC 0.000 Nucleated RBC % (auto) 0.0 Sodium 137 Potassium 4.1 Chloride 104 Carbon Dioxide 23 Anion Gap 14 BUN 7 L Creatinine 0.71 Estim Creat Clear Calc 101.9 Estimated GFR > 60 Random Glucose Fasting Glucose 77 Lactic Acid Calcium 8.2 L Magnesium 1.8 Total Bilirubin Direct Bilirubin AST ALT Alkaline Phosphatase C-Reactive Protein Total Protein Albumin Lipase Urine Color Urine Appearance Urine pH Ur Specific [place] Urine Protein Urine Glucose (UA) Urine Ketones Urine Blood Urine Nitrite Ur Leukocyte Esterase Urine RBC Urine WBC Ur Squamous Epith Cells Urine Bacteria Hyaline Casts Urine Test NEGATIVE Stool Occult Blood COVID-19 ([facility]IKO) COVID-19 Clin Com Airway Mallampati Class: II TM Dist: >3cm Neck ROM: Full Loose/Missing/Broken Teeth: No Heart: RRR Lungs: CTA Assessment and Plan Assessment Anesthesia Assessment: Anesthesia Plan Discussed and Chart Reviewed Final Anesthetic Review Family History of Problems with Anesthesia: No History of Problems with Anesthesia: No NPO: Yes ASA Class: II Final Preanesthetic Review: No Changes in Pt Med Stat, Meds/Allgs Chart Reviewed, Consent Obtained/Reviewed and Anes Risks/Benef Reviewed Patient Risk: Intermediate Procedure Risk: Low Anesthetic Plan Anesthetic Plan: MAC: Disposition: Standard PACU
--- NOTE | 2022-06-05 14:14 | P.OP_ITS ---
Operative Note Operative Note Date of Service: 06/05/22 Narrative: Procedure: Flexible sigmoidoscopy Indication: Lower GI bleeding Endoscopist: Mallorie Clemens MD Anesthesia Provider: Dr Tanner Viramontes Anesthesia type: MAC Instrument: Olympus [id number]-[id number] Consent: Indication, risks vs benefits, and alternatives were discussed with the patient who gave written informed consent to proceed. . Monitoring: EKG, pulse, pulse oximetry and blood pressure were monitored throughout the procedure. Medications: Please see anesthesia flowsheet. Procedure: The patient was brought to the procedure room and placed in the left lateral decubitus position. IV medications were administered by the anesthesia provider in attendance. A digital rectal exam was performed which was normal [abnormal due to finding of hemorrhoids, anal tag, anal fistula]. The gastroscope was then inserted through the anus and advanced through the colon to the splenic flexure. Mucosa was carefully examined under high definition white light as the instrument was slowly withdrawn in a retrograde panoramic fashion. Retroflexion was performed in rectum. The procedure was not difficult. There were no immediate obvious complications. The quality of the prep was adequate Limitations: No limitations. Findings: Mucosa: Erythema, erosions and whitish exudates were noted from 35 cm to 40 cm. There was normal mucosa above and below this. Cold forceps biopsies were taken and sent for histology. Protruding lesions: * Medium internal hemorroids including a prolapsed hemorrhoid. Excavated lesions: * Few diverticulosis of sigmoid colon. Impression: 1. Abnormal mucosa from 35-40cm with sharp demarcations. 2. Sigmoid diverticulosis 3. External hemorrhoids Recommendations: - Follow path results. Most likely infectious as her abd pain and diarrhea are resolving. Office will call with results in 5-7 days. - Can be discharged from GI standpoint if tolerating PO intake.
--- NOTE | 2022-06-05 14:14 | MHC.SHP ---
Pre-Procedural Eval Section A Date of Service: 06/05/22 The patient is an INPATIENT: Yes The History & Physical has been completed within 30 days and I have reviewed it.: Yes Section B Chief Complaint: colitis Allergies: Allergies Allergy/AdvReac Type Severity Reaction Status Date / Time latex [Latex] Allergy Unknown HIVES Verified 10/20/21 12:28 hydrocodone [Vicodin] AdvReac Unknown Vomiting Verified 10/20/21 12:28 metoclopramide [Reglan] AdvReac Unknown hallucinati Verified 10/20/21 12:28 ons sumatriptan [From Imitrex] AdvReac Unknown VOMITING Verified 10/20/21 12:28 Plan Diagnosis/Plan: Unchanged I have reviewed the history and physical and performed a pertinent physical examination on my patient. No changes have occurred unless specified.
[2022-06-05 14:38] VITALS: BP 107/56; PULSE 86; RESP 17; TEMP 36.4; O2SAT 99
[2022-06-05 14:53] VITALS: BP 104/63; PULSE 70; RESP 16; O2SAT 99
[2022-06-05 15:08] VITALS: BP 104/60; PULSE 64; RESP 16; TEMP 36.3; O2SAT 99
--- NOTE | 2022-06-05 16:32 | PM.DS ---
DS: Providers Provider Date of Service: 06/05/22 Date of admission: 06/04/22 10:13 Primary care physician: Katelyn Stoll MD Consults: 06/04/22 10:12 Consult to Gastroenterology Routine Consulting Provider: Mallorie Clemens Reason for consultation: colitis, hematochezia, hepatomegaly DS: Diagnosis Discharge Diagnosis (1) Bloody diarrhea: Status: Acute DS: Summary Hospital Course Hospital Course: from initial hpi: Chief Complaint: brbpr, llq pain 37F with pmh moderate persistent asthma presented with one day history of BRBPR. patient states that about 1 week ptp she went out for dinner and had 2-3 days severe watery diarrhea, her son, who also had the dinner had similar symptoms. she then felt better for about 2-3 days, until night of presentation when she woke up with severe llq 10/10 crampy non radiating abdominal pain associated with bloody diarrhea. patient denies fevers, previous hisotyr of similar symptoms, no family history of IBD. 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 hospital course: Patient was admitted for acute left-sided colitis with hematochezia, likely due to infectious etiology. She was afebrile not septic, therefore not given antibiotics. She was given IV fluids and pain control. Stool PCR was not sent as patient had no further diarrhea. Hematochezia resolved. She was seen by Gastroenterology who performed flex sigmoidoscopy that showed erythematous mucosa, biopsies were taken. Patient is feeling better will be discharged home to follow-up with GI. For moderate persistent asthma she was continued on her inhalers. For migraine she was given Fioricet. On her CT abdomen she had incidental finding of hepatomegaly, she can follow up with GI as outpatient. 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 Time Spent with Patient Time attestation: Total time spent providing and/or coordinating discharge services: Discharge coordination time: Greater than 30 minutes Quality: Safe Use of Opioids Does Pt have an Active Cancer Diagnosis on the Problem List?: No Quality: Stroke Does the patient have a stroke diagnosis?: No Physical Exam Vital Signs: Vital Signs: Last Vital Signs Temp 97.3 F 06/05/22 15:08 Pulse 64 06/05/22 15:08 Resp 16 06/05/22 15:08 BP 104/60 06/05/22 15:08 Pulse Ox 99 06/05/22 15:08 O2 Del Method 06/05/22 15:08 BMI result Body Mass Index 4.8 General: AO X 3, no acute distress Resp: CTA bilateral, no accessory muscles used CVS: S1,S2,RRR GI: soft, non tender, non distended Neuro: motor grossly intact, alert Psych: appropriate affect, appropriate insight DS: Data Data Completed and Pending Pending studies at discharge: Pending at discharge 06/05/22 14:26 Surgical [PTH] Routine Labs on day of discharge: Laboratory Results - last 24 hr 06/05/22 06/05/22 05:57 05:57 WBC 8.2 RBC 3.60 L Hgb 10.7 L Hct 33.2 L MCV 92.2 MCH 29.7 MCHC 32.2 RDW 12.5 Plt Count 220 MPV 12.4 H Absolute Nucleated RBC 0.000 Nucleated RBC % (auto) 0.0 Sodium 137 Potassium 4.1 Chloride 104 Carbon Dioxide 23 Anion Gap 14 BUN 7 L Creatinine 0.71 Estim Creat Clear Calc 101.9 Estimated GFR > 60 Fasting Glucose 77 Calcium 8.2 L Magnesium 1.8 Preliminary micro results at discharge 06/04/22 09:24 Blood Culture - Preliminary Blood - Venous No growth after 24 hours. 06/04/22 09:24 Blood Culture - Preliminary Blood - Venous No growth after 24 hours. Discharge Plan Discharge Patient Disposition: Home, Self-Care Discharge Diagnosis: colitis Referrals: Katelyn Stoll MD [Primary Care Provider] - 1 Week Mallorie Clemens MD [Physician] - 1 Week Discharge Medications: Continued albuterol sulfate 2.5 mg /3 mL (0.083 %) solution for nebulization 2.5 mg inhalation Q6H Qty: 90 4RF albuterol sulfate [ProAir HFA] 90 mcg/actuation HFA aerosol inhaler 2 puff inhalation Q6H PRN (Reason: shortness of breath or wheezing) Qty: 8.5 1RF Xulane 150-35 mcg/24 hr Patch Weekly 1 patch topical QWEEK Advair HFA 230-21 mcg/actuation HFA aerosol inhaler 2 puff inhalation Q12H Qty: 36 6RF Discharge Orders: Discharge Order (Routine); Ordered 06/05/22 Ordered By: Freddie Green Diet: Advance to usual diet Activity on Discharge: As tolerated Stand Alone Forms: Patient Portal Discharge page Care Plan Goals: reocvery Health Concerns: colitis Plan of Treatment: follow up with gi Assessment: see above
--- NOTE | 2022-06-05 16:51 | PC.NURSE ---
patient taking sips po fluids. medicated sublingual zofran anesthesia aware.
== END 2022-06-05 19:54 | disposition home or self-care (01) ==
LOC: HO.ED 06:35 → HO.EDOVER 10:19
PROVIDERS: Internal Medicine; Admitting Provider Internal Medicine; Emergency Provider Emergency Medicine; PCP Internal Medicine; Visit Provider Internal Medicine
PROC: 0DJD8ZZ Inspection of Lower Intestinal Tract, Via Natural or Artificial Opening Endoscopic (ICD-10-PCS; CPT 45330; principal; 2022-06-05 13:50)
DX: K52.9 Noninfective gastroenteritis and colitis, unspecified (principal); K57.30 Diverticulosis of large intestine without perforation or abscess without bleeding; K64.4 Residual hemorrhoidal skin tags; K92.1 Melena; R10.32 Left lower quadrant pain; R16.0 Hepatomegaly, not elsewhere classified; R11.2 Nausea with vomiting, unspecified; I82.891 Chronic embolism and thrombosis of other specified veins; Z20.822 Contact with and (suspected) exposure to COVID-19; J45.40 Moderate persistent asthma, uncomplicated; Z87.442 Personal history of urinary calculi; Z90.721 Acquired absence of ovaries, unilateral
CPT/HCPCS: 45331; 36415; 74177; 80048; 80053; 81001; 81025; 82248; 82272; 83605; 83690; 83735; 85027; 86140; 87040; 87086; 87147; 87635; 88305; 96361; 96374; 96375; 96376; 99218; 99285; J1170; J2270; J2405; Q9967

== ENCOUNTER 2022-06-30 08:13 | Outpatient (REF) | payer OTHER, MEDICAID, SELFPAY ==
[2022-06-30 12:06] LABS: HBS Num1 17.17 mIU/mL (0-7.99); HBsAGNum1 0.17 S/CO (0.00-0.99); Hepatitis B Core Antibody Nonreactive (Nonreactive); Hepatitis B Surface Antigen Negative (Negative); ~HepC Num1 0.25 S/CO (0.00-0.79); ~Hepatitis B Surface Antibody REACTIVE (Nonreactive); ~Hepatitis C Antibody Nonreactive (Nonreactive)
[2022-07-01 04:35] LABS: Hepatitis A Antibody IgM 0.19 Index (0-0.79); ~Hepatitis A Antibody IgM Nonreactive (Nonreactive)
[2022-07-02 14:56] LABS: Alpha 1 Anti-trypsin 183 mg/dL (83-199); Ceruloplasmin 43 mg/dL (18-53)
== END 2022-06-30 08:14 | disposition home or self-care (01) ==
LOC: HO.HMGCLDS 08:13
PROVIDERS: Absent Provider Internal Medicine; PCP Internal Medicine; Visit Provider Internal Medicine
DX: R16.0 Hepatomegaly, not elsewhere classified (principal)
CPT/HCPCS: 36415; 82103; 82390; 86704; 86706; 86709; 86803; 87340

== ENCOUNTER 2022-07-14 08:50 | Outpatient (REF) | payer OTHER, SELFPAY ==
--- NOTE | ~2022-07-14 | US_ITS ---
EXAMINATION: US ABDOMEN COMPLETE CLINICAL INFORMATION: Hepatomegaly, not elsewhere classified. COMPARISON: CT abdomen and pelvis 06/04/2022. Ultrasound abdomen complete 06/13/2018 and 03/15/2017. TECHNIQUE: Real-time imaging of the abdominal viscera. FINDINGS: PANCREAS: Normal. ABDOMINAL AORTA: The proximal, mid, and distal segments are normal in caliber. INFERIOR VENA CAVA: Visualized portions are normal. LIVER: Liver is enlarged measuring 19.0 cm. The liver contour is normal. Parenchymal echogenicity is normal. No focal hepatic lesion. There is no intrahepatic biliary duct dilatation seen. GALLBLADDER: Normal. The gallbladder is physiologically distended without evidence of stones, sludge, polyps, wall thickening or pericholecystic fluid. COMMON BILE DUCT: Normal in caliber measuring 0.22 cm in diameter. RIGHT KIDNEY: Nonobstructing 2 mm stone. No hydronephrosis or focal parenchymal lesions. The kidney measures 10.9 cm in maximum dimension. LEFT KIDNEY: Normal. No hydronephrosis. No renal calculi or focal parenchymal lesions. The kidney measures 9.6 cm in maximum dimension. SPLEEN: Normal. The spleen measures 8.3 cm in maximum dimension. FREE FLUID: None. US/US abdomen complete IMPRESSION: 1. Hepatomegaly. No focal hepatic lesion. 2. Nonobstructing right renal nephrolithiasis.
== END 2022-07-14 08:51 | disposition home or self-care (01) ==
LOC: HO.HMGCX 08:50
PROVIDERS: PCP Internal Medicine; Visit Provider Internal Medicine
DX: R16.0 Hepatomegaly, not elsewhere classified (principal)
CPT/HCPCS: 76700

== ENCOUNTER 2022-08-21 07:39 | Outpatient (REF) | payer OTHER, SELFPAY ==
[2022-08-21 12:57] LABS: Alanine Aminotransferase 11 U/L (0-31); Albumin Level 4.2 g/dL (3.5-5.0); Alkaline Phosphatase 70 U/L (39-117); Aspartate Amino Transferase 14 U/L (5-31); Bilirubin Direct 0.2 mg/dL (0.0-0.5); Bilirubin Total 0.8 mg/dL (0.0-1.0); Gamma Glutamyl Transpeptidase 10 U/L (7-33); Total Protein 7.6 g/dL (6.5-8.0)
== END 2022-08-21 07:40 | disposition home or self-care (01) ==
LOC: HO.HMGCLDS 07:39
PROVIDERS: PCP Internal Medicine; Visit Provider Internal Medicine
DX: R16.0 Hepatomegaly, not elsewhere classified (principal)
CPT/HCPCS: 36415; 80076; 82977

== ENCOUNTER 2022-09-29 09:48 | Outpatient (REF) | payer OTHER, MEDICAID, SELFPAY ==
[2022-09-29 14:11] LABS: MANUAL DIFF FLAG NO
[2022-09-29 14:27] LABS: Basophils Absolute Auto 0.1 X10*3/uL (0.0-0.2); Basophils Percent Auto 1.4 % (0-2); Hematocrit 40.2 % (37.0-47.0); Hemoglobin 13.3 g/dl (12.0-16.0); Imm Gran Abs Auto 0.01 X10*3/uL (0.00-0.03); Imm Gran Pct Auto 0.1 % (0.0-0.4); Lymphocytes Absolute Auto 3.1 X10*3/uL (1.2-4.9); Lymphocytes Percent Auto 36.1 % (20-40); Mean Corpuscular HGB Conc 33.1 g/dl (31.0-35.0); Mean Corpuscular Hemoglobin 30.7 pg (27.0-33.0); Mean Corpuscular Volume 92.8 fL (80.0-98.0); Mean Platelet Volume 12.1 fL (9.4-12.3); Monocytes Absolute Auto 0.6 X10*3/uL (0.1-1.2); Monocytes Percent Auto 7.3 % (2-11); Neutrophils Absolute Auto 3.6 x10*3/uL (2.0-8.3); Neutrophils Percent Auto 43.1 % (45-73); Platelet Count 310 X10*3/uL (160-400); Red Blood Count 4.33 X10*6/uL (4.20-5.50); White Blood Count 8.5 X10*3/uL (4.8-10.8)
[2022-09-29 16:06] LABS: Alanine Aminotransferase 7 U/L (0-31); Albumin Level 4.2 g/dL (3.5-5.0); Alkaline Phosphatase 54 U/L (39-117); Anion Gap 11 (12-20); Aspartate Amino Transferase 11 U/L (5-31); Bilirubin Total 0.4 mg/dL (0.0-1.0); Blood Urea Nitrogen 11 mg/dL (9-16); Calcium 9.6 mg/dL (8.4-10.2); Carbon Dioxide 25 mmol/L (22-29); Chloride 107 mmol/L (96-108); Cholesterol 222 mg/dL; Estimated Glomerular Filt Rate > 60; Glucose Fasting 86 mg/dL (60-99); HDL Cholesterol 56 mg/dL; LDL Cholesterol Calculated 148 mg/dl; Potassium 3.9 mmol/L (3.3-5.1); Sodium 139 mmol/L (135-145); Total Protein 7.7 g/dL (6.5-8.0); Triglycerides 90 mg/dL
== END 2022-09-29 09:49 | disposition home or self-care (01) ==
LOC: HO.HMGCLDS 09:48
PROVIDERS: PCP Internal Medicine; Visit Provider Internal Medicine
DX: Z00.00 Encounter for general adult medical examination without abnormal findings (principal); J45.909 Unspecified asthma, uncomplicated
CPT/HCPCS: 36415; 80053; 80061; 85025

== ENCOUNTER 2024-04-02 17:56 | Emergency (ER) | payer OTHER, SELFPAY ==
[2024-04-02 18:12] VITALS: BP 121/71; PULSE 73; RESP 20; TEMP 36.7; O2SAT 97; BMI 20.2
[2024-04-02 18:47] LABS: MANUAL DIFF FLAG NO
[2024-04-02 18:49] LABS: Basophils Absolute Auto 0.1 X10*3/uL (0.0-0.2); Basophils Percent Auto 0.7 % (0-2); Eosinophils Absolute Auto 0.6 X10*3/uL (0.0-0.4); Eosinophils Percent Auto 6.6 % (0-4); Hematocrit 34.5 % (37.0-47.0); Hemoglobin 11.8 g/dl (12.0-16.0); Imm Gran Abs Auto 0.03 X10*3/uL (0.00-0.03); Imm Gran Pct Auto 0.3 % (0.0-0.4); Lymphocytes Absolute Auto 3.1 X10*3/uL (1.2-4.9); Lymphocytes Percent Auto 32.3 % (20-40); Mean Corpuscular HGB Conc 34.2 g/dl (31.0-35.0); Mean Corpuscular Hemoglobin 30.7 pg (27.0-33.0); Mean Corpuscular Volume 89.8 fL (80.0-98.0); Mean Platelet Volume 11.7 fL (9.4-12.3); Monocytes Absolute Auto 0.8 X10*3/uL (0.1-1.2); Monocytes Percent Auto 8.4 % (2-11); Neutrophils Absolute Auto 4.9 x10*3/uL (2.0-8.3); Neutrophils Percent Auto 51.7 % (45-73); Platelet Count 218 X10*3/uL (160-400); Red Blood Count 3.84 X10*6/uL (4.20-5.50); Red Cell Distribution Width 12.6 % (11.0-16.0); White Blood Count 9.5 X10*3/uL (4.8-10.8)
[2024-04-02 19:05] LABS: Anion Gap 10 (12-20); Blood Urea Nitrogen 13 mg/dL (9-16); Calcium 9.4 mg/dL (8.4-10.2); Carbon Dioxide 26 mmol/L (22-29); Chloride 109 mmol/L (96-108); Creatinine Clr Calc Pharmacy 86.4; Estimated Glomerular Filt Rate > 60; Glucose Random 101 mg/dL (60-115); Potassium 3.9 mmol/L (3.3-5.1); Sodium 141 mmol/L (135-145)
[2024-04-02 19:57] VITALS: BP 109/71; PULSE 68; RESP 16; TEMP 36.8; O2SAT 98
--- NOTE | 2024-04-02 20:21 | ED_ITS ---
HPI - Dental/Oral General Chief complaint: Dental/Oral Stated complaint: rt bottom back tooth infected Time Seen by Provider: 04/02/24 19:48 Source: patient Mode of arrival: ambulatory Limitations: no limitations History of Present Illness ED Provider: sonny LAI Narrative: Patient's history of dental caries in the right lower wisdom tooth small piece of tooth broke off and having increased pain for last 2 days with feeling of hot and cold no fever no chills Related Data Home Medications ?Medication ?Instructions ?Recorded ?Confirmed norelgestromin 150 mcg-e.estradiol 1 patch topical QWEEK 06/04/22 09/29/22 35 mcg/24 hr weekly transderm patch (Xulane) Previous Rx's ?Medication ?Instructions ?Recorded albuterol sulfate 2.5 mg/3 mL 2.5 mg (3 mL) inhalation Q6H #90 mL 05/10/23 (0.083 %) solution for nebulization fluticasone propionate 230 2 puff inhalation BID #12 grams 07/22/23 mcg-salmeterol 21 mcg/actuation HFA inhaler albuterol sulfate 90 mcg/actuation 2 puff inhalation Q6H PRN 02/24/24 aerosol inhaler shortness of breath or wheezing #8.5 grams Allergies Allergy/AdvReac Type Severity Reaction Status Date / Time latex [Latex] Allergy Unknown HIVES Verified 04/02/24 18:14 hydrocodone [Vicodin] AdvReac Unknown Vomiting Verified 04/02/24 18:14 metoclopramide [Reglan] AdvReac Unknown hallucinati Verified 04/02/24 18:14 ons sumatriptan [From Imitrex] AdvReac Unknown VOMITING Verified 04/02/24 18:14 Review of Systems 2 Review of Systems: Yes all other systems are reviewed and are negative PMFSH Past Medical History Medical History Normal Pap smear Seasonal allergic rhinitis Kidney stones Asthma Surgical History S/P removal of right ovary Family History Family History Father Hypertension Brother Substance use disorder Mother No problems noted. Social History Social History Household Members Other:: single, 2 children, works for [employer] Housing: House Patient Tobacco Use Status: Never used Tobacco e-Cigarette/Vaping Use: Never Used Advance Directives: No Advance Directives Information Provided: No service: No Current occupational status: employed Cognitive needs: No Hearing needs: No Vision needs: Yes Physical Exam 2 Vital Signs: Vital Signs: Last Vital Signs Temp 98.2 F 04/02/24 19:57 Pulse 68 04/02/24 19:57 Resp 16 04/02/24 19:57 BP 109/71 04/02/24 19:57 Pulse Ox 98 04/02/24 19:57 O2 Del Method Room Air 04/02/24 19:57 BMI result Body Mass Index 20.2 HEENT: Teeth image: 1. Broken tooth number 32 with local tenderness slight gum swelling no abscess Medical Decision Making Medical Decision Making MDM Narrative: Patient with pain tooth number 22 with local inflammation and infection will prescribe Augmentin oxycodone for pain advised to follow up with dentist Lab Data 04/02/24 18:34 04/02/24 18:34 Labs: Lab Results 04/02/24 Range/Units 18:34 WBC 9.5 (4.8-10.8) X10*3/uL RBC 3.84 L (4.20-5.50) X10*6/uL Hgb 11.8 L (12.0-16.0) g/dl Hct 34.5 L (37.0-47.0) % MCV 89.8 (80.0-98.0) fL MCH 30.7 (27.0-33.0) pg MCHC 34.2 (31.0-35.0) g/dl RDW 12.6 (11.0-16.0) % Plt Count 218 D (160-400) X10*3/uL MPV 11.7 (9.4-12.3) fL Immature Gran % (Auto) 0.3 (0.0-0.4) % Neut % (Auto) 51.7 (45-73) % Lymph % (Auto) 32.3 (20-40) % Callahan % (Auto) 8.4 (2-11) % Eos % (Auto) 6.6 H (0-4) % Baso % (Auto) 0.7 (0-2) % Lymph # (Auto) 3.1 (1.2-4.9) X10*3/uL Callahan # (Auto) 0.8 (0.1-1.2) X10*3/uL Eos # (Auto) 0.6 H (0.0-0.4) X10*3/uL Baso # (Auto) 0.1 (0.0-0.2) X10*3/uL Abs Immat Gran (auto) 0.03 (0.00-0.03) X10*3/uL Absolute Neuts (auto) 4.9 (2.0-8.3) x10*3/uL Absolute Nucleated RBC 0.000 (0.0-0.012) X10*3/uL Nucleated RBC % (auto) 0.0 (0.0-0.2) /100WBC Sodium 141 (135-145) mmol/L Potassium 3.9 (3.3-5.1) mmol/L Chloride 109 H (96-108) mmol/L Carbon Dioxide 26 (22-29) mmol/L Anion Gap 10 L (12-20) BUN 13 (9-16) mg/dL Creatinine 0.79 (0.5-1.4) mg/dL Estim Creat Clear Calc 86.4 Estimated GFR > 60 Random Glucose 101 (60-115) mg/dL Calcium 9.4 (8.4-10.2) mg/dL Discharge Plan Discharge Clinical Impression: Dental caries Patient Disposition: Home, Self-Care Instructions: Toothache (ED) Prescriptions: No Action albuterol sulfate 2.5 mg /3 mL (0.083 %) solution for nebulization 2.5 mg inhalation Q6H Qty: 90 4RF fluticasone propion-salmeterol 230-21 mcg/actuation HFA aerosol inhaler 2 puff inhalation BID Qty: 12 4RF albuterol sulfate 90 mcg/actuation HFA aerosol inhaler 2 puff inhalation Q6H PRN (Reason: shortness of breath or wheezing) Qty: 8.5 2RF Xulane 150-35 mcg/24 hr Patch Weekly 1 patch topical QWEEK Print Language: Turkish
[2024-04-02] MEDS: Amoxicillin/Potassium Clav 875 MG TABLET PO (20:23)
[2024-04-02] MEDS: oxyCODONE HCl Immed Release 5 MG TABLET 10 MG PO (20:23)
[2024-04-02 20:46] VITALS: BP 120/57; PULSE 65; RESP 16; TEMP 36.8; O2SAT 99
== END 2024-04-02 20:47 | disposition home or self-care (01) ==
PROVIDERS: Emergency Provider Internal Medicine; PCP Internal Medicine
DX: K02.9 Dental caries, unspecified (principal); Z79.899 Other long term (current) drug therapy
CPT/HCPCS: 36415; 80048; 85025; 99283; 99284

== ENCOUNTER 2024-04-11 07:35 | Outpatient (AMB) | payer OTHER, SELFPAY ==
--- NOTE | 2023-12-28 13:43 | A.OFFPC_ITS ---
Vital Signs 12/28/23 13:44 04/11/24 07:53 Height 5 ft 6 in 5 ft 6 in Weight 125 lb 117 lb BMI 20.2 18.9 BP 100/64 94/62 Blood Pressure Location Lt brachial Lt brachial Position Sitting Sitting Pulse 84 85 Pulse Source Pulse Oximeter Pulse Oximeter Pulse Oximetry (%) 97 96 Oxygen Delivery Method Room Air Room Air Intake Visit Reasons: PE Intake Note: Pt is here today for PE. Pt has [facility]YS[facility] at [facility] and her last pap was last month. Allergies latex [Latex] Allergy (Unknown, Verified 04/11/24 07:56) HIVES hydrocodone [Vicodin] Adverse Reaction (Unknown, Verified 04/11/24 07:56) Vomiting metoclopramide [Reglan] Adverse Reaction (Unknown, Verified 04/11/24 07:56) hallucinations sumatriptan [From Imitrex] Adverse Reaction (Unknown, Verified 04/11/24 07:56) VOMITING Medication List - Last Reconciled 04/11/24 by Katelyn Stoll MD albuterol sulfate 90 mcg/actuation 2 puffs inhalation Q6H PRN albuterol sulfate 2.5 mg (3 mL) inhalation Q6H amoxicillin-pot clavulanate 875-125 mg 1 tab PO BID desogestrel-ethinyl estradiol 0.15-0.03 mg (Apri) 1 tab PO DAILY fluticasone propion-salmeterol 230-21 mcg/actuation 2 puffs inhalation BID ibuprofen 600 mg PO Q6H PRN montelukast (Singulair) 10 mg PO DAILY oxycodone 5 mg PO Q6H PRN Tobacco use date assessed: 04/11/24 Dental Screening Dental Screen Date: 12/28/23 Did you have a dental visit in the last 12 months?: No Did you have a dental problem in the last 6 months where you did not have access to dental care?: No Was dental information given to patient?: Patient has dentist HPI PE HPI Details Patient presents for physical. She has infected wisdom teeth and has an appointment with a dentist for the extraction. She reports asthma better controlled since she is able to afford Advair. She complains of mainly exercise induced asthma but also environmental. Patient has been using albuterol a few times a week. [facility] Medical History Normal Pap smear Seasonal allergic rhinitis Kidney stones Asthma Surgical History S/P removal of right ovary Family History Father Hypertension Brother Substance use disorder Mother No problems noted. Social History Household Members Other:: single, 2 children, works for [employer] Housing: House Patient Tobacco Use Status: Never used Tobacco e-Cigarette/Vaping Use: Never Used Substance Use Type: Marijuana service: No Current occupational status: employed Cognitive needs: No Hearing needs: No Vision needs: Yes Questionnaire PHQ-9 Over the last 2 weeks, how often have you been bothered by any of the following problems? 1. Little interest or pleasure in doing things: not at all 2. Feeling down, depressed, or hopeless: several days 3. Trouble falling or staying asleep, or sleeping too much: more than half the days 4. Feeling tired or having little energy: more than half the days 5. Poor appetite or overeating: not at all 6. Feeling bad about yourself - or that you are a failure or have let yourself or your family down: not at all 7. Trouble concentrating on things, such as reading the newspaper or watching television: not at all 8. Moving or speaking so slowly that other people could have noticed. Or the opposite - being so fidgety or restless that you have been moving around a lot more than usual: not at all 9. Thoughts that you would be better off or of hurting yourself in some way: not at all Total score: 5 Depression Screening Interpretation: Negative Depression Screening Done: Yes 22619 - PHQ-9 Billing: Yes Source: Developed by Drs. Jose Etienne, Poly Orellana, Raoul Clark and colleagues, with an educational niya from [employer]. Thrive Questionnaire Date Thrive assessed: 12/28/23 I am a: Patient What is your living situation today?: I have a steady place to live Within the past 12 months, did the food you bought not last and you didn't have the money to get more?: Never true Within the past 12 months, did you worry whether your food would run out before you got money to buy more?: Never true Do you have trouble paying for medicines?: Yes Do you have trouble getting transportation to medical appointments?: No Do you have trouble paying your heating and electricity bill?: No Do you have trouble taking care of your child, family member or friend?: No Do you have trouble with day-to-day activities such as bathing, preparing meals, shopping, managing finances, etc.?: No Are you currently unemployed and looking for a job?: No Are you interested in more education?: No Please select the resources that you would like help with: None THRIVE Score: 0 AUDIT C Alcohol Use Questionnaire (AUDIT-C) 1. How often do you have a drink containing alcohol?: Never 3. How often do you have six or more drinks on one occasion?: Never Total Score: 0 KVNG-7 AMB Questionnaire KVNG-7 Date KVNG - 7 assessed: 12/28/23 Feeling nervous, anxious, or on edge: 1 = Several days Not being able to stop or control worryin = Several days Worrying too much about different things: 1 = Several days Trouble relaxin = Several days Being so restless that it is hard to sit still: 0 = Not at all Becoming easily annoyed or irritable: 1 = Several days Feeling afraid as if something awful might happen: 1 = Several days Total KVNG-7 score (0-4 normal; 5-9 mild; 10-14 moderate; 15-21 severe): 6 Source: Developed by Drs. Jose Etienne, Poly Orellana, Raoul Clark and colleagues, with an educational niya from [employer]. Review of Systems Const All systems reviewed & are unremarkable except as noted in HPI and below Reports no additional complaints Eyes Reports no additional complaints ENT Reports no additional complaints Card Reports no additional complaints Resp Reports no additional complaints GI Reports no additional complaints Reports no additional complaints Physical exam (Primary Care) Vital Signs: Last Vital Signs Pulse 85 04/11/24 07:53 BP 94/62 04/11/24 07:53 Pulse Ox 96 04/11/24 07:53 Oxygen Delivery Method Room Air 04/11/24 07:53 BMI result Body Mass Index 18.9 Tobacco/Smoking Status: Tobacco use Status Tobacco use date assessed 04/11/24 04/11/24 07:59 Patient Tobacco Use Status Never used Tobacco 12/28/23 13:51 e-Cigarette/Vaping Use Never Used 12/28/23 13:44 PHQ-9: PHQ-9 Score PHQ-9: Total score 5 04/11/24 07:59 Depression Screening Interpretation: Negative Thrive Assessment: Date of Thrive Assessment Date Thrive assessed 12/28/23 12/28/23 13:54 Const General: no acute distress HENMT Ears: hearing grossly normal bilaterally Face and sinus: Yes normal facial exam Throat: Yes posterior oropharynx normal Eyes General: appearance normal, both eyes and all related structures Neck Neck: Yes no lymphadenopathy and Yes supple Resp Effort & Inspection: normal respiratory effort Auscultation: clear to auscultation bilaterally Cardio Rhythm: regular rhythm Heart sounds: S1 normal heart sound present and S2 normal heart sound present GI Inspection: Yes normal to inspection Palpation (GI): Soft to palpation Percussion: Yes normal to percussion Auscultation: normal bowel sounds Assessment and Plan Assessment & Plan (1) Asthma: Comment: moderate persistent Code(s): J45.909 - Unspecified asthma, uncomplicated Plan: Add montelukast and referred to the manufacturing helper for allergy testing. Patient will continue Advair and albuterol before exercise and p.r.n.. Follow-up in 1 month (2) Annual physical exam: Code(s): Z00.00 - Encounter for general adult medical examination without abnormal findings Plan: Well-balanced diet regular physical activity discussed with the patient. (3) Hyperlipidemia: Code(s): E78.5 - Hyperlipidemia, unspecified Plan: Low-cholesterol diet discussed with the patient (4) Anemia: Code(s): D64.9 - Anemia, unspecified Plan: Check CBC iron count and B12 level. Patient has been taking nuql-tiv-[id number] iron supplement. (5) Annual physical exam: Code(s): Z00.00 - Encounter for general adult medical examination without abnormal findings (6) Hyperlipidemia: Code(s): E78.5 - Hyperlipidemia, unspecified (7) Normal Pap smear: Comment: director microbiology 08/2021, 12/2023 Orders: Orders Lipid Panel Today E78.5 - Hyperlipidemia, unspecified, J45.909 - Unspecified asthma, uncomplicated, Z00.00 - Encounter for general adult medical examination without abnormal findings Vitamin B12 and Folate Today D64.9 - Anemia, unspecified, E78.5 - Hyperlipidemia, unspecified, Z00.00 - Encounter for general adult medical examination without abnormal findings IRON PROFILE Today E78.5 - Hyperlipidemia, unspecified, J45.909 - Unspecified asthma, uncomplicated, Z00.00 - Encounter for general adult medical examination without abnormal findings Complete Blood Count Auto Diff Today E78.5 - Hyperlipidemia, unspecified, J45.909 - Unspecified asthma, uncomplicated, Z00.00 - Encounter for general adult medical examination without abnormal findings Referrals Allergy & Immunology Referral D64.9 - Anemia, unspecified, Z00.00 - Encounter for general adult medical examination without abnormal findings Medications: New montelukast (Singulair) 10 mg PO DAILY 90 tabs 3RF Coding Level of Care Code Est Pt Prev Care 18-39y(15747) Diagnoses Asthma J45.909 Annual physical exam Z00.00 Hyperlipidemia E78.5 Anemia D64.9 Normal Pap smear Z12.4
[2023-12-28 13:44] VITALS: BP 100/64; PULSE 84; O2SAT 97; BMI 20.2
[2024-04-11 07:53] VITALS: BP 94/62; PULSE 85; O2SAT 96; BMI 18.9
== END 2024-04-11 08:24 | disposition home or self-care (01) ==
PROVIDERS: PCP Internal Medicine; Visit Provider Internal Medicine
DX: J45.909 Unspecified asthma, uncomplicated (principal); Z00.00 Encounter for general adult medical examination without abnormal findings; E78.5 Hyperlipidemia, unspecified; D64.9 Anemia, unspecified; Z12.4 Encounter for screening for malignant neoplasm of cervix
CPT/HCPCS: 99395

== ENCOUNTER 2025-07-29 12:02 | Emergency (ER) | payer OTHER, SELFPAY ==
--- NOTE | ~2025-07-29 | CT_ITS ---
CLINICAL HISTORY: flank pain Exam: Nonenhanced CT abdomen and pelvis with multiplanar reformats. Comparison: None. Findings: CT abdomen: Lung bases are clear. Liver is free of gross focal lesions and ductal dilatation. Gallbladder is unremarkable. Spleen is unremarkable. Pancreas and adrenal glands appear unremarkable. Kidneys reveal a punctate 4 mm right renal interpolar calculus (5; 149). There is very minimal right hydroureteronephrosis. There is a 5 mm calculus overlying the right posterior bladder wall at the expected level of the ureteral orifice (5; 550), suggesting UVJ calculus versus recently passed calculus. No other urolithiasis. Left kidney appears unremarkable. No free intraperitoneal fluid or retroperitoneal masses or adenopathy. Abdominal aorta is normal caliber. Bowel loops reveal no abnormal wall thickening or distention. CT pelvis: Uterus is retroverted. No pelvic masses, fluid or adenopathy. Urinary bladder is free of gross filling defects. Osseous structures reveal no destructive osseous lesions. Impression: 1. 5 mm calculus overlying right posterior bladder wall at the expected level of the ureteral orifice, suggesting right UVJ calculus versus recently passed calculus. There is very slight fullness of the right renal collecting system and ureter. Additional nonobstructing right renal calculus. This document has been electronically signed by: Hubert Scott MD on 07/29/2025 14:37:47
[2025-07-29 12:08] VITALS: BP 155/86; PULSE 97; RESP 18; TEMP 36.6; O2SAT 98; BMI 21.3
--- NOTE | 2025-07-29 12:12 | ED_ITS ---
HPI - General Adult General Chief complaint: Urogenital-Female Stated complaint: ? Kidney Stone Time Seen by Provider: 07/29/25 12:51 Source: patient Mode of arrival: ambulatory Limitations: no limitations History of Present Illness ED Provider: Aliya De Luna PA-C HPI narrative: Patient is a 40 year old assigned female at with a history of kidney stones, asthma, HLD, and hepatomegaly presenting to the emergency department today with right flank pain, nausea, vomiting, and painful urination. Patient states that over the last week she has had right sided flank pain with nausea, vomiting, and painful urination. Patient states that it was mostly intermittent and then on the way here it got significantly worse. Patient denies any other complaints at this time. Related Data Home Medications ?Medication ?Instructions ?Recorded ?Confirmed desogestrel 0.15 mg-ethinyl 1 tab PO DAILY 04/11/24 estradiol 0.03 mg tablet (Apri) Previous Rx's ?Medication ?Instructions ?Recorded amoxicillin 875 mg-potassium 1 tab PO BID #20 tabs clavulanate 125 mg tablet ibuprofen 600 mg tablet 600 mg PO Q6H PRN fever or p ain 04/02/24 #30 tabs oxycodone 5 mg tablet 5 mg PO Q6H PRN pain #20 tab s 04/02/24 montelukast 10 mg tablet 10 mg PO DAILY #90 tabs 03/21 12/11 (Singulair) albuterol sulfate 2.5 mg/3 mL 2.5 mg (3 mL) inhalation Q6H #90 mL 08/30/24 (0.083 %) solution for nebulization fluticasone propionate 230 2 puff inhalation BID #12 e a 06/28/25 mcg-salmeterol 21 mcg/actuation HFA inhaler albuterol sulfate 90 mcg/actuation 2 puff inhalation Q 6H PRN 07/23/25 aerosol inhaler shortness of breath or wheez ing #8.5 grams naproxen 500 mg tablet 500 mg PO BID 7 days #14 tab s 07/29/25 prednisone 10 mg tablet 10 mg PO DAILY 4 days #4 tab s 07/29/25 tamsulosin 0.4 mg capsule 0.4 mg PO DAILY #7 caps 06/14 Allergies Allergy/AdvReac Type Severity Reaction Status Date / Time latex (Latex) Allergy Unknown HIVES Verified 07/29/25 12:12 hydrocodone (Vicodin) AdvReac Unknown Vomiting Verified 07/29/25 12:12 metoclopramide (Reglan) AdvReac Unknown hallucinati Verified 07/29/25 12:12 ons sumatriptan (From Imitrex) AdvReac Unknown VOMITING Verified 07/29/25 12:12 Review of Systems 2 Constitutional: Constitutional: Reports as per HPI Eyes: Eyes: Reports as per HPI ENT: Reports as per HPI Cardiovascular: Cardiovascular: Reports as per HPI Respiratory: Respiratory: Reports as per HPI Gastrointestinal: Gastrointestinal: Reports as per HPI Genitourinary: Genitourinary: Reports as per HPI Musculoskeletal: Musculoskeletal: Reports as per HPI Integumentary/Breasts: Skin/Breast: Reports as per HPI Neurologic: Reports as per HPI Psychiatric: Psychiatric: Reports as per HPI Endocrine: Endocrine: Reports as per HPI Hematologic/Lymphatic: Hematologic/Lymphatic: Reports as per HPI Allergic/Immunologic: Allergic/Immunologic: Reports as per HPI PMF Past Medical History Attestation statement: The following information was validated with the patient. Source: old records reviewed and nursing notes reviewed Medical History Normal Pap smear Seasonal allergic rhinitis Kidney stones Asthma Surgical History S/P removal of right ovary Family History Family History Father Hypertension Brother Substance use disorder Mother No problems noted. Social History Social History Household Members Other:: single, 2 children, works for [employer] Housing: House Alcohol intake: current Alcohol intake frequency: holidays/special occasions only Patient Tobacco Use Status: Never used Tobacco e-Cigarette/Vaping Use: Never Used Substance Use Type: Marijuana service: No Current occupational status: employed Cognitive needs: No Hearing needs: No Vision needs: Yes Physical Exam ED Vital Signs: Vital Signs - 24 hr 07/29/25 12:08 07/29/25 13:13 07/29/25 14:18 Temperature 98 F 98 F 97.1 F Pulse Rate 97 73 63 Respiratory Rate 18 18 18 Blood Pressure 155/86 H 125/80 109/67 Pulse Oximetry 98 98 Oxygen Delivery Method Room Air Room Air Room Air 07/29/25 16:12 Temperature 97.1 F Pulse Rate 63 Respiratory Rate 18 Blood Pressure 109/67 Pulse Oximetry Oxygen Delivery Method Room Air BMI result Body Mass Index 21.3 Const General: cooperative, no acute distress, alert and awake Nutritional Appearance: well nourished Orientation/consciousness: patient oriented x3 HENMT Head: Yes normal to inspection and Yes atraumatic Ears: hearing grossly normal bilaterally and external ears normal General nose exam: Normal external nose present, no nasal discharge noted and no epistaxis Face and sinus: Yes normal facial exam, No abrasion and No laceration Mouth: Normal oral and palatal mucosa present, no drooling and no muffled voice Eyes General: appearance normal, both eyes and all related structures Periorbital: periorbital findings normal Eyelids: Yes eyelids normal Conjunctivae: conjunctivae normal Pupils: Equal, round and reactive pupils present EOM: EOMs intact bilaterally Neck Neck: Yes normal visual inspection and Yes full ROM Resp Effort & Inspection: normal respiratory effort and able to speak in complete sentences Neuro General: patient oriented x3, moves all extremities and CN's II-XI intact bilaterally Cranial nerves: Yes Equal, round and reactive pupils present Cognition (Neuro): normal cognition Extrem General: Yes normal to inspection, Yes full ROM and Yes capillary refill normal Psych Appearance: grossly normal Mental Status: mental status grossly normal Affect: normal affect Attitude: cooperative Thought process: Normal thought process present Thought content: Normal thought content present Insight: Good insight present (Psych) Course Course Course Narrative: RME: 40-year-old female presents to ED for right flank pain with dysuria. Patient states past medical history of kidney stones. Patient states some nausea and vomiting. Labs ordered. Medications Administered Discontinued Medications Generic Name Dose Route Start Last Admin Trade Name Freq PRN Reason Stop Dose Admin Diazepam 5 mg 07/29/25 12:51 07/29/25 13:02 Diazepam 10 Mg/2 Ml Cartridge IVPUSH 07/29/25 12:52 5 mg STAT STA Administration Hydromorphone HCl 0.5 mg 07/29/25 13:07 07/29/25 13:11 Hydromorphone Hcl 0.5 Mg/0.5 Ml Syringe IVPUSH 07/29/25 13:08 0.5 mg ONCE ONE Administration Protocol Sodium Chloride 1,000 mls @ 999 mls/hr 07/29/25 13:00 07/29/25 14:33 Ns IV 07/29/25 14:00 Infused .Q1H1M LEROY Infusion Sodium Chloride 1,000 mls @ 999 mls/hr 07/29/25 14:45 07/29/25 16:23 Ns IV 07/29/25 15:45 Infused .Q1H1M LEROY Infusion Ketorolac Tromethamine 15 mg 07/29/25 12:51 07/29/25 13:02 Ketorolac Tromethamine 15 Mg/Ml Vial IVPUSH 07/29/25 12:52 15 mg ONCE ONE Administration Ketorolac Tromethamine 15 mg 07/29/25 15:06 07/29/25 15:50 Ketorolac Tromethamine 15 Mg/Ml Vial IVPUSH 07/29/25 15:07 15 mg ONCE ONE Administration Ondansetron HCl 4 mg 07/29/25 12:51 07/29/25 13:02 Ondansetron Hcl 4 Mg/2 Ml Vial IVPUSH 07/29/25 12:52 4 mg ONCE ONE Administration Prednisone 10 mg 07/29/25 14:34 07/29/25 14:44 Prednisone 10 Mg Tablet PO 07/29/25 14:35 10 mg ONCE ONE Administration Tamsulosin HCl 0.4 mg 07/29/25 14:34 07/29/25 14:44 Tamsulosin Hcl 0.4 Mg Capsule PO 07/29/25 14:35 0.4 mg ONCE ONE Administration Medical Decision Making Medical Decision Making [facility] Narrative: Patient is a 40 year old assigned female at with a history of kidney stones, asthma, HLD, and hepatomegaly presenting to the emergency department today with right flank pain, nausea, vomiting, and painful urination. Patient's physical exam was as noted in the physical exam portion of this note. Patient's blood work showed a slightly elevated WBC count of 13. Patient's urine showed no acute process. Patient's CT abd/pelvis showed a 5mm kidney stone in the right UVJ vs. recently passed stone. Patient received IV fluids, toradol, and dilaudid which, upon re-evaluation, she stated it helped her symptoms significantly. I explained my physical exam findings as well as all test results to the patient. I answered all questions asked by the patient. I stressed the importance of the patient taking her medication as directed (either prescribed or as the over the counter packaging recommends). I stressed the importance of the patient following up with her primary care provider and the [facility] Urology team. I stressed the importance of the patient returning to the emergency department immediately if her symptoms were to worsen or if she were to develop any dizziness, shortness of breath, difficulty breathing, chest pain, blurry vision, loss of vision, nausea, vomiting, abdominal pain, fever, chills, back pain, or any other complaints. Patient verbalized agreement and understanding with this treatment plan and discharge. Differential Diagnosis Differential Diagnoses: The differential diagnosis associated with the presentation includes Kidney stone Flank pain Admission/Observation Consideration of admission/observation: Escalation of care including admission/observation considered Patient would have been admitted to the hospital had her work up had any findings where hospital admission was appropriate and her clinical presentation warranted hospital admission. Lab Data [facility] Lab Attestation statement: I reviewed the patient's lab results. My interpretation of these results are in the [facility] Rationale portion of this note. 07/29/25 12:19 07/29/25 12:19 Labs: Lab Results 07/29/25 Range/Units 12:19 WBC 13.0 H (4.8-10.8) X10*3/uL RBC 4.43 (4.20-5.50) X10*6/uL Hgb 13.4 (12.0-16.0) g/dl Hct 40.1 (37.0-47.0) % MCV 90.5 (80.0-98.0) fL MCH 30.2 (27.0-33.0) pg MCHC 33.4 (31.0-35.0) g/dl RDW 12.9 (11.0-16.0) % Plt Count 277 D (160-400) X10*3/uL MPV 11.0 (9.4-12.3) fL Immature Gran % (Auto) 0.2 (0.0-0.4) % Neut % (Auto) 54.2 (45-73) % Lymph % (Auto) 31.6 (20-40) % Hill % (Auto) 8.8 (2-11) % Eos % (Auto) 4.4 H (0-4) % Baso % (Auto) 0.8 (0-2) % Lymph # (Auto) 4.1 (1.2-4.9) X10*3/uL Hill # (Auto) 1.1 (0.1-1.2) X10*3/uL Eos # (Auto) 0.6 H (0.0-0.4) X10*3/uL Baso # (Auto) 0.1 (0.0-0.2) X10*3/uL Abs Immat Gran (auto) 0.03 (0.00-0.03) X10*3/uL Absolute Neuts (auto) 7.1 (2.0-8.3) x10*3/uL Absolute Nucleated RBC 0.000 (0.0-0.012) X10*3/uL Nucleated RBC % (auto) 0.0 (0.0-0.2) /100WBC Sodium 137 (135-145) mmol/L Potassium 4.1 (3.3-5.1) mmol/L Chloride 106 (96-108) mmol/L Carbon Dioxide 23 (22-29) mmol/L Anion Gap 12 (12-20) BUN 12 (9-16) mg/dL Creatinine 0.78 (0.5-1.4) mg/dL Estim Creat Clear Calc 90.6 Estimated GFR > 60 Random Glucose 95 (60-115) mg/dL Calcium 9.4 (8.4-10.2) mg/dL Total Bilirubin 0.4 (0.0-1.0) mg/dL AST 19 (5-31) U/L ALT 13 (0-31) U/L Alkaline Phosphatase 69 (39-117) U/L Total Protein 8.1 H (6.5-8.0) g/dL Albumin 4.6 (3.5-5.0) g/dL Lipase 11 (8-78) U/L Beta HCG, Quant < 2 mIU/mL Urine Color Yellow Urine Appearance Clear Urine pH 5.5 (5.0-9.0) Ur Specific [place] 1.020 (1.005-1.025) Urine Protein Negative (Neg-Trace) mg/dL Urine Glucose (UA) Negative (Negative) mg/dL Urine Ketones Negative (Negative) mg/dL Urine Blood Small (1+) H (Negative) Urine Nitrite Negative (Negative) Ur Leukocyte Esterase Negative (Negative) Urine RBC 6-10 H (0-2) /HPF Urine WBC 0-5 (0-5) /HPF Ur Squamous Epith Cells 0-2 (0-2) /HPF Urine Bacteria None Seen (None Seen) Hyaline Casts 0-2 (0-2) /LPF Urine Test NEGATIVE (NEGATIVE) Independent Interpretation I performed an independent interpretation of an: CT Scan Interpretation: My interpretation is in agreement with the radiologist's impression of this imaging study. L Report Number: [id number]: Total DLP = 641.00 mGy-cm Reason for Exam: flank pain CLINICAL HISTORY: flank pain Exam: Nonenhanced CT abdomen and pelvis with multiplanar reformats. Comparison: None. Findings: CT abdomen: Lung bases are clear. Liver is free of gross focal lesions and ductal dilatation. Gallbladder is unremarkable. Spleen is unremarkable. Pancreas and adrenal glands appear unremarkable. Kidneys reveal a punctate 4 mm right renal interpolar calculus (5; 149). There is very minimal right hydroureteronephrosis. There is a 5 mm calculus overlying the right posterior bladder wall at the expected level of the ureteral orifice (5; 550), suggesting UVJ calculus versus recently passed calculus. No other urolithiasis. Left kidney appears unremarkable. No free intraperitoneal fluid or retroperitoneal masses or adenopathy. Abdominal aorta is normal caliber. Bowel loops reveal no abnormal wall thickening or distention. CT pelvis: Uterus is retroverted. No pelvic masses, fluid or adenopathy. Urinary bladder is free of gross filling defects. Osseous structures reveal no destructive osseous lesions. Impression: 5 mm calculus overlying right posterior bladder wall at the expected level of the ureteral orifice, suggesting right UVJ calculus versus recently passed calculus. There is very slight fullness of the right renal collecting system and ureter. Additional nonobstructing right renal calculus. This document has been electronically signed by: Hubert Scott MD on 07/29/2025 14:37:47 Dictated By: Hubert Scott MD Signed By: Electronically signed by Hubert Scott MD 07/29/25 [id number] Radiology Impression Discussion of test interpretation with radiology: I have reviewed the radiologist's reading. Critical Care Time Critical Care Time Critical Care Time: Yes Total Critical Care Time: 36 Attestation: I spent 36 minutes of Critical Care Time with this patient. This does not include time spent on separately reported billable procedures. Discharge Plan Discharge Clinical Impression: Kidney stone Patient Disposition: Home, Self-Care Instructions: Kidney Stones (ED) Additional Instructions: Your CT scan showed evidence of a 5mm stone that has already made it into your bladder. Take your medication as prescribed. Follow up with your urologist. IF you are prescribed home medications and/or you are taking over the counter medications at home - it is very important you continue to do so as prescribed / directed unless told otherwise. Follow up with your primary care provider. Return to the emergency department immediately if your symptoms worsen or if you develop any numbness, tingling, dizziness, shortness of breath, difficulty breathing, chest pain, blurry vision, loss of vision, nausea, vomiting, abdominal pain, fever, chills, back pain, or any other complaints. Please see the information below about our Patient Portal. If you are not yet enrolled in the [facility] Patient Portal, you will receive an enrollment email invitation following your visit to any [facility] setting. You may also self-enroll in the Patient Portal by visiting our website: [email or web address] The following information is required to access the Patient Portal: - Your [facility] Medical Record Number - Your personal home email address (must match what is in your electronic medical record, Registration staff can assist with this) - Name - Date of Capabilities of the Patient Portal: - Message some providers - View upcoming appointments - Access your health summary, medical history, and visit history - View current conditions and allergies - View procedure and lab results - View your medications, including guidelines, side effects, and precautions - Complete pre-appointment questionnaires requested by your provider - Ready summary reports of your office visits and procedures To access the Patient Portal Mobile [employer], follow these directions: - Search [employer] in the [employer] Store or [employer] Store - Download the [employer] - Search for [facility] - Enter your login/password Prescriptions: New prednisone 10 mg tablet 10 mg PO DAILY 4 Days Qty: 4 0RF tamsulosin 0.4 mg capsule 0.4 mg PO DAILY Qty: 7 0RF naproxen 500 mg tablet 500 mg PO BID 7 Days Qty: 14 0RF No Action albuterol sulfate 2.5 mg /3 mL (0.083 %) solution for nebulization 2.5 mg inhalation Q6H Qty: 90 5RF fluticasone propion-salmeterol 230-21 mcg/actuation HFA aerosol inhaler 2 puff inhalation BID Qty: 12 4RF albuterol sulfate 90 mcg/actuation HFA aerosol inhaler 2 puff inhalation Q6H PRN (Reason: shortness of breath or wheezing) Qty: 8.5 3RF amoxicillin-pot clavulanate 875-125 mg tablet 1 tab PO BID Qty: 20 0RF oxycodone 5 mg tablet 5 mg PO Q6H PRN (Reason: pain) Qty: 20 0RF Rx Instructions: Partial Fill upon patient request. ibuprofen 600 mg tablet 600 mg PO Q6H PRN (Reason: fever or pain) Qty: 30 0RF desogestrel-ethinyl estradiol [Apri] 0.15-0.03 mg tablet 1 tab PO DAILY montelukast [Singulair] 10 mg tablet 10 mg PO DAILY Qty: 90 3RF Referrals: [facility] Urology Services [Provider Group, Urology] Referral Note: [facility] Urology will reach out to you within 2 business days to discuss scheduling your follow up appointment. If you haven't heard from them in 2 days, call the office. Katelyn Stoll MD [Primary Care Provider, Internal Medicine] Stand Alone Forms: Work/School Release Interventions: ED Discharge Assessment Last Done: 07/29/25 16:12 Discharge Date/Time: 07/29/25 16:23 Print Language: Grenadian
[2025-07-29 12:24] LABS: MANUAL DIFF FLAG NO
[2025-07-29 12:26] LABS: Hematocrit 40.1 % (37.0-47.0); Hemoglobin 13.4 g/dl (12.0-16.0); Imm Gran Abs Auto 0.03 X10*3/uL (0.00-0.03); Imm Gran Pct Auto 0.2 % (0.0-0.4); Lymphocytes Absolute Auto 4.1 X10*3/uL (1.2-4.9); Mean Corpuscular HGB Conc 33.4 g/dl (31.0-35.0); Mean Corpuscular Hemoglobin 30.2 pg (27.0-33.0); Mean Corpuscular Volume 90.5 fL (80.0-98.0); NRBC Abs Auto 0.000 X10*3/uL (0.0-0.012); NRBC Pct Auto 0.0 /100WBC (0.0-0.2); Platelet Count 277 X10*3/uL (160-400); Red Blood Count 4.43 X10*6/uL (4.20-5.50); White Blood Count 13.0 X10*3/uL (4.8-10.8)
[2025-07-29 12:30] LABS: Appearance Urine Clear; Glucose Urine UA Negative (Negative); PH 5.5 (5.0-9.0); Specific Gravity - Urine 1.020 (1.005-1.025); UMIC TRIGGER UACC YES
[2025-07-29 12:32] LABS: UPreg QC Valid YES
[2025-07-29 12:47] LABS: Alanine Aminotransferase 13 U/L (0-31); Albumin Level 4.6 g/dL (3.5-5.0); Alkaline Phosphatase 69 U/L (39-117); Anion Gap 12 (12-20); Aspartate Amino Transferase 19 U/L (5-31); Blood Urea Nitrogen 12 mg/dL (9-16); Calcium 9.4 mg/dL (8.4-10.2); Carbon Dioxide 23 mmol/L (22-29); Chloride 106 mmol/L (96-108); Creatinine Clr Calc Pharmacy 90.6; Estimated Glomerular Filt Rate > 60; Lipase 11 U/L (8-78); Potassium 4.1 mmol/L (3.3-5.1); Sodium 137 mmol/L (135-145); Total Protein 8.1 g/dL (6.5-8.0)
[2025-07-29] MEDS: diazePAM 10 MG/2 ML CARTRIDGE 5 MG IVPUSH (13:02)
[2025-07-29 13:13] VITALS: BP 125/80; PULSE 73; RESP 18; TEMP 36.6; O2SAT 98
[2025-07-29 14:18] VITALS: BP 109/67; PULSE 63; RESP 18; TEMP 36.2
[2025-07-29 16:12] VITALS: BP 109/67; PULSE 63; RESP 18; TEMP 36.2
== END 2025-07-29 16:23 | disposition home or self-care (01) ==
PROVIDERS: Physician Assistant; Emergency Provider Emergency Medicine Emergency Medical Services; PCP Internal Medicine
DX: N20.0 Calculus of kidney (principal); R11.2 Nausea with vomiting, unspecified; R30.0 Dysuria; R10.22 Pelvic and perineal pain left side; Z79.899 Other long term (current) drug therapy
CPT/HCPCS: 36415; 74176; 80053; 81001; 81025; 83690; 84702; 85025; 96361; 96374; 96375; 96376; 99285; J1171; J1885; J2405; J3360

== ENCOUNTER → 2025-07-29 12:51 | Outpatient (BNV) | payer OTHER, SELFPAY | PROVIDERS: PCP Internal Medicine; Visit Provider Radiology Diagnostic Radiology | DX: N20.0 Calculus of kidney (principal); N21.0 Calculus in bladder | CPT/HCPCS: 74176 ==

== ENCOUNTER 2025-08-28 10:54 | Outpatient (AMB) | payer OTHER, SELFPAY ==
--- NOTE | 2025-08-28 11:07 | MHC.OFFVIS ---
Intake Visit Reasons: kidney stones SET/UA Intake Note: New Patient is present for kidney stones Urology Rx: Tamsulosin Blood Thinners:none NKDA Imaging completed: Abd /Pelvis CT 07/29/25 Implementation Project Coordinator Required: No Accompanied by: Self / Same As Patient Allergies latex (Latex) Allergy (Unknown, Verified 08/28/25 11:08) HIVES hydrocodone (Vicodin) Adverse Reaction (Unknown, Verified 08/28/25 11:08) Vomiting metoclopramide (Reglan) Adverse Reaction (Unknown, Verified 08/28/25 11:08) hallucinations sumatriptan (From Imitrex) Adverse Reaction (Unknown, Verified 08/28/25 11:08) VOMITING HPI Comments Details: Janett is a pleasant female. She is a patient of Dr. Stoll. She is seen for the following urologic conditions - small right distal stone Prior nephrolithiasis 15 years ago Recent imaging - CT - Kidneys reveal a punctate 4 mm right renal interpolar calculus (5; 149). There is very minimal right hydroureteronephrosis. There is a 5 mm calculus overlying the right posterior bladder wall at the expected level of the ureteral orifice (5; 550), suggesting UVJ calculus versus recently passed calculus Discussed dietary triggers for stones Performed baseline stone labs plus Uro risk Follow-up imaging [facility] Medical History (Updated 08/28/25 @ 11:49 by Tanner Alvarenga MD) Normal Pap smear Seasonal allergic rhinitis Kidney stones Asthma Surgical History S/P removal of right ovary Family History Father Hypertension Brother Substance use disorder Mother No problems noted. Social History Household Members Other:: single, 2 children, works for [employer] Housing: House Alcohol intake: current Alcohol intake frequency: holidays/special occasions only Patient Tobacco Use Status: Never used Tobacco e-Cigarette/Vaping Use: Never Used Substance Use Type: Marijuana service: No Current occupational status: employed Cognitive needs: No Hearing needs: No Vision needs: Yes Review of Systems Const Denies chills and Denies fever(s) Card Reports no additional complaints and Denies syncope Resp Denies cough GI Denies abdominal pain and Denies heartburn Reports as per HPI and Denies change in libido Neuro Denies syncope Psych Denies change in libido Endo Denies change in libido Physical Exam Const General: cooperative, healthy appearing, comfortable and no acute distress Orientation/consciousness: patient oriented x3 HEENT Face and sinus: Yes normal facial exam Mouth: moist mucous membranes Neck Neck: Yes normal visual inspection, Yes full ROM and Yes trachea midline Chest Chest palpation & inspection: normal inspection of the chest Resp Effort & Inspection: normal respiratory effort, able to speak in complete sentences and no respiratory distress GI Inspection: Yes normal to inspection Back/Spine/Pelvis Cervical Spine: normal cervical lordosis Thoracic/Lumbar Spine: thoracic and lumbar spine normal to inspection Skin General skin exam: no rashes or lesions noted Neuro General: patient oriented x3, gait normal, tone normal and moves all extremities Extrem General: Yes normal to inspection and Yes capillary refill normal Results AMB Urinalysis, Automated UA Leukoctes 0 Tyler/uL Last Edit by Kait Flores [facility] on 08/28/25 11:16 UA Nitrite Negative Last Edit by Kait Flores [facility] on 08/28/25 11:16 UA Urobilinogen 0.2 mg/dL Last Edit by Kait Flores [facility] on 08/28/25 11:16 UA Protein 0 mg/dL Last Edit by Kait Flores [facility] on 08/28/25 11:16 UA pH 6.0 Last Edit by Kait Flores [facility] on 08/28/25 11:16 UA Blood 0 Jackson/uL Last Edit by Kait Flores [facility] on 08/28/25 11:16 UA Specific [place] 1.025 Last Edit by Kait Flores [facility] on 08/28/25 11:16 UA Ketone Negative Last Edit by Kait Flores [facility] on 08/28/25 11:16 UA Bilirubin 0 mg/dL Last Edit by Kait Flores [facility] on 08/28/25 11:16 UA Glucose 0 mg/dL Last Edit by Kait Flores [facility] on 08/28/25 11:16 Results Reviewed Results Reviewed: Laboratory Last Values Urine pH (Auto) 6.0 08/28/25 11:08 Specific [place] (Auto) 1.025 08/28/25 11:08 Urine Protein (Auto) 0 mg/dL 08/28/25 11:08 Glucose (UA)(Auto) 0 mg/dL 08/28/25 11:08 Urine Ketones (Auto) Negative 08/28/25 11:08 Urine Blood (Auto) 0 Jackson/uL 08/28/25 11:08 Urine Nitrite (Auto) Negative 08/28/25 11:08 Urine Bilirubin (Auto) 0 mg/dL 08/28/25 11:08 Urine Urobilinogen (Auto) 0.2 mg/dL 08/28/25 11:08 Leukocyte Esterase (Auto) 0 Tyler/uL 08/28/25 11:08 Assessment & Plan Assessment & Plan (1) Kidney stones: Code(s): N20.0 - Calculus of kidney Category: Medical Plan Stone investigations Orders: Orders Phosphorus 3 Months N20.0 - Calculus of kidney Calcium 3 Months N20.0 - Calculus of kidney AMB Urinalysis Automated 08/28/25 N13.8 - Other obstructive and reflux uropathy, N40.1 - Benign prostatic hyperplasia with lower urinary tract symptoms US renal BI 3 Months N20.0 - Calculus of kidney Uric Acid 3 Months N20.0 - Calculus of kidney Vitamin D 25-OH Total 3 Months N20.0 - Calculus of kidney Parathyroid Hormone Intact 3 Months N20.0 - Calculus of kidney Patient Instructions: This note is constructed using voice recognition software. While every effort has been made to ensure accuracy lockstitch front edge tape sewer errors may have been included. Imaging studies, laboratory and physical exam results were discussed and reviewed in detail. No major barriers to patient understanding were identified. An opportunity to ask questions regarding the treatment plan was provided. All questions were answered. The patient expressed understanding and agreement with the above treatment plan. The patient is aware they should contact our office by phone for worsening of their current condition or the appearance of new urologic symptoms. Compliance is encouraged with any medications and followup testing that is ordered. It is a privilege to participate in the urologic care of your patient. If you have any questions or concerns regarding treatment for the above conditions, or other urologic issues, please do not hesitate to contact me. The office telephone contact is [phone]. Sincerely, Dr Tanner Alvarenga MD, [facility] - Urology Compassionate Specialist Care for the Genitourinary System Coding Level of Care Code New Pt Level 4 (55823) Diagnoses Kidney stones N20.0
== END 2025-08-28 11:55 | disposition home or self-care (01) ==
LOC: HO.HUSH 10:54
PROVIDERS: PCP Internal Medicine; Visit Provider Urology
DX: N40.1 Benign prostatic hyperplasia with lower urinary tract symptoms (principal); N13.8 Other obstructive and reflux uropathy

== ENCOUNTER → 2025-08-28 10:54 | Outpatient (BNVA) | payer OTHER, SELFPAY | PROVIDERS: PCP Internal Medicine; Visit Provider Urology | DX: N20.0 Calculus of kidney (principal) | CPT/HCPCS: 81003 ==